=== PATIENT | female | born 1995 | race Caucasian/White ===

== ENCOUNTER → 2020-08-18 11:15 | Outpatient (CLI) | payer SELFPAY ==
[2020-08-18 12:34] LABS: hCG Titer Quant., Serum 2067 mIU/mL (1-3)
== END ==
PROVIDERS: Nurse Practitioner Women's Health; Referring Provider Obstetrics & Gynecology; Visit Provider Obstetrics & Gynecology
DX: N91.2 Amenorrhea, unspecified (principal)
CPT/HCPCS: 36415; 84702

== ENCOUNTER → 2020-08-20 13:55 | Outpatient (CLI) | payer SELFPAY ==
[2020-08-20 15:05] LABS: hCG Titer Quant., Serum 4137 mIU/mL (1-3)
== END ==
PROVIDERS: Nurse Practitioner Women's Health; Referring Provider Obstetrics & Gynecology; Visit Provider Obstetrics & Gynecology
DX: N91.2 Amenorrhea, unspecified (principal)
CPT/HCPCS: 36415; 84702

== ENCOUNTER → 2020-09-24 11:05 | Outpatient (CLI) | payer SELFPAY ==
[2020-09-24 09:47] VITALS: BMI 25.0
[2020-09-24 11:44] LABS: Absolute Lymphocyte Count 1.78 X10^3/uL (0.83-4.51); Absolute Neutrophil Count 7.7 X10^3/uL (2.0-7.7); Basophil# 0.04 X10^3/uL; Basophil% 0.4 % (0-1); Eosinophil# 0.04 X10^3/uL; Eosinophils% 0.4 % (0-5); Hematocrit 36.3 % (37-47); Hemoglobin 12.6 g/dL (12.0-15.0); Lymphocyte # 1.78 X10^3/ul (0.83-4.51); Lymphocyte % 17.6 % (19-41); Mean Corp Hgb Conc 34.7 g/dL (32-36); Mean Corpuscular Hgb 30.4 pg (27.0-32.0); Mean Corpuscular Volume 87.7 fL (81-99); Mean Platelet Vol. 9.8 fl (6.2-12.0); Monocyte# 0.52 X10^3/uL; Monocyte% 5.1 % (0-10); NRBC Flagged by Analyzer 0 % (0-5); Neutrophil # 7.69 X10^3/uL (2.7-7.7); Platelet Count 231 K/mm3 (150-450); RBC Distribution Width CV 11.8 % (11.6-14.6); RBC Distribution Width SD 37.9 fl (35.1-43.9); Red Blood Count 4.14 M/mm3 (4.2-5.4); White Blood Count 10.1 K/mm3 (4.4-11.0)
[2020-09-24 12:20] LABS: NATERA MAILED SPECIMEN
[2020-09-24 12:46] LABS: HIV - WCH Non-Reactive (Nonreactive); Hepatitis B Surface Antigen Non-Reactive (Nonreactive); Hepatitis C Antibody Non-Reactive (Nonreactive); Rubella IgG Reactive (Nonreactive); Syphilis Antibodies Non-reactive
[2020-09-24 13:59] LABS: Amphetamine Urine VISTA NEGATIVE (<1000 ng/mL); Barbiturate Urine VISTA NEGATIVE (< 200 ng/mL); Benzodiazepine Urine VISTA NEGATIVE (< 200 ng/mL); Cocaine Urine VISTA NEGATIVE (< 300 ng/mL); Ecstacy Urine VISTA NEGATIVE (< 500 ng/mL); Methadone Urine VISTA NEGATIVE (< 300 ng/mL); PCP Urine VISTA NEGATIVE (< 25 ng/mL); THC Urine VISTA NEGATIVE (< 50 ng/mL); Vista UDS pH Range 6
[2020-09-30 10:44] LABS: Chlamydia By Nucleic Acid AMP Positive (Negative); Gonococcus By Nucleic Acid AMP Negative (Negative)
[2020-09-30 10:46] LABS: HPV Reflexed? NOT INDICATED
== END ==
PROVIDERS: Referring Provider Obstetrics & Gynecology; Visit Provider Obstetrics & Gynecology
DX: Z34.81 Encounter for supervision of other normal pregnancy, first trimester (principal); Z12.4 Encounter for screening for malignant neoplasm of cervix
CPT/HCPCS: 36415; 80307; 85025; 86703; 86762; 86780; 86803; 86850; 86900; 86901; 87086; 87340; 87491; 87591; 88175; G0145

== ENCOUNTER → 2020-10-21 | Outpatient (CLI) | payer SELFPAY ==
[2020-10-21 18:25] LABS: Chlamydia Trachomatis by PCR Negative (Negative); Neisserai gonorrhoeae by PCR Negative (Negative); Probe Check PASS; Sample Adequacy Control PASS; Specimen Processing Control PASS
== END | disposition home or self-care (01) ==
LOC: LABSPEC 15:17
PROVIDERS: Visit Provider Nurse Practitioner Women's Health
DX: O98.819 Other maternal infectious and parasitic diseases complicating pregnancy, unspecified trimester (principal); A74.9 Chlamydial infection, unspecified; Z3A.00 Weeks of gestation of pregnancy not specified
CPT/HCPCS: 87491; 87591

== ENCOUNTER 2020-11-23 17:20 | Emergency (ER) | payer SELFPAY ==
[2020-11-23 17:21] VITALS: BP 122/75; PULSE 98; RESP 18; TEMP 36.7; O2SAT 100; BMI 26.4
--- NOTE | 2020-11-23 18:26 | ED.VIS.DYS ---
HPI History of Present Illness Chief Complaint: Shortness of Breath Narrative Narrative: Patient is a 25-year-old female who is 19 weeks . She states she has had mild congestion and drainage in her throat and has felt short of breath. She denies any fevers or chills or any known sick exposures. She denies any chest pain. She also reports no vaginal bleeding or discharge. She states she was just concerned with her symptoms since she is and therefore presented for evaluation [facility] Medical History Rh negative status during Home Medications prenat.vits,sushil,thr-rtoy-yecgm 1 tab PO DAILY 09/07/20 [History Last Taken Unknown] Allergy/AdvReac Type Severity Reaction Status Date / Time No Known Allergies Allergy Verified 11/23/20 17:21 Family History Mother History of DVT (deep vein thrombosis) Social History adopted: No household members: spouse current occupational status: employed current occupation: [employer] pets and animals: No Smoking Status: Never smoker alcohol intake: never substance use type: does not use ROS ROS ED Constitutional Constitutional ED: Denies chills or fever(s) ENT ENT ED: Reports nasal congestion and sore throat Cardiovascular Cardiovascular: Denies chest pain Respiratory/Chest Respiratory/Chest: Reports cough and dyspnea Gastrointestinal Gastrointestinal: Denies abdominal pain, diarrhea, nausea or vomiting Genitourinary Genitourinary ED: Denies dysuria Musculoskeletal Musculoskeletal: Denies myalgias Integumentary Denies rash Neurologic Neurologic: Denies headache(s) Hematologic/Lymphatic Hematologic/Lymphatic: Denies easy bleeding or easy bruising EXAM Physical Exam Const Vital Signs: 11/23/20 17:21 11/23/20 18:17 Temperature 98.1 F Temperature Source Temporal Pulse Rate 98 Respiratory Rate 18 Respiratory Effort Normal Non-Labored Respiratory Depth Normal Respiratory Pattern Normal Blood Pressure 122/75 H Blood Pressure Mean 90 Pulse Ox 100 Oxygen Delivery Method Room Air Positive well nourished and well developed General Appearance ED: well developed HEENT Reports moist mucous membranes HEENT Narrative: Nasal mucosa is hyperemic and boggy and there is cobblestoning the posterior pharynx but no airway edema or compromise. No tongue or lip swelling Eyes PERRL and EOMs intact bilaterally Neck supple Resp normal respiratory effort and clear to auscultation bilaterally Effort and Inspection: able to speak in complete sentences and symmetric chest movement Cardio regular rate and regular rhythm GI non-tender and non-distended Auscultation: normoactive bowel sounds Palpation: soft Extremity normal to inspection, full ROM, normal capillary refill and no clubbing, cyanosis or edema Extremity Narrative: No asymmetric edema no pitting edema negative Homans' sign bilaterally Neuro oriented x3, CN's II-XII intact bilaterally, moves all extremities and no focal motor deficits Sensorium / Orientation: alert Psych mental status grossly normal Skin no rashes or lesions noted MDM MDM MDM Narrative Medical decision making narrative: Patient presented ER satting 100% on room air with no signs of respiratory distress. Lungs are clear and she also has no asymmetric leg swelling or pleuritic chest pain to suggest pulmonary embolism as the cause of her symptoms. I do feel she most likely has a viral syndrome at this time. We discussed the possible Covid swab but it is low on my list based on her constellation of symptoms. Patient states she does not want the Covid swab obtained and as she is I do not feel there is a need to perform a chest x-ray as her pulse ox is 100% on room air and she has normal breath sound. Patient states she feels comfortable returning home as my exam is nonfocal and that she most likely has a viral illness causing her mild symptoms. Discharge Plan Triage Chief Complaint: Shortness of Breath ED Provider: Mejia Noonan Dx/Rx/DC Orders Clinical Impression: Viral upper respiratory illness Prescriptions: No Action prenat.vits,sushil,fwq-[id number]-[id number] Tablet 1 tab PO DAILY RF: 0 Primary Care Provider: Care Physician,No Primary Referrals: Cj Zavala MD [STAFF PHYSICIAN] - Care Physician,No Primary [Primary Care Provider] - Disposition Disposition: Home, Self Care
[2020-11-23 18:38] VITALS: BP 124/68; PULSE 71; RESP 15; O2SAT 98
== END 2020-11-23 18:38 | disposition home or self-care (01) ==
PROVIDERS: Emergency Provider Emergency Medicine
DX: O99.512 Diseases of the respiratory system complicating pregnancy, second trimester (principal); J06.9 Acute upper respiratory infection, unspecified; O36.0120 Maternal care for anti-D [Rh] antibodies, second trimester, not applicable or unspecified; Z3A.19 19 weeks gestation of pregnancy
CPT/HCPCS: 99283; A4216

== ENCOUNTER → 2020-12-04 07:39 | Outpatient (CLI) | payer SELFPAY ==
--- NOTE | 2020-12-04 08:11 | US_ITS ---
STUDY: SECOND AND THIRD TRIMESTER OBSTETRICAL ULTRASOUND REASON FOR EXAM: Female, 25 years old anatomy LMP: 07/14/2020. TECHNIQUE: Transabdominal and Transvaginal TECHNICAL QUALITY: Adequate. PRIOR ULTRASOUND: None. FINDINGS: There is a single intrauterine fetus. The fetus is in a cephalic presentation. There is demonstrated cardiac activity with a heart rate of 138 bpm. There is a normal amniotic fluid volume. The largest amniotic fluid pocket measures 4.6 x 4.7 cm. The amniotic fluid index (SAÚL) is within normal limits. The placenta is posterior in location and is not low lying. There are Grade 0 placental changes. The cervix measures 4.4 cm in length. The bilateral adnexal regions are normal. BIOMETRY: BPD: 4.56 cm: 19 weeks, 5 days HC: 17.31 cm: 19 weeks, 6 days AC: 15.51 cm: 20 weeks, 4 days FL: 3.06 cm: 19 weeks, 3 days CI: 79% FL/BPD: 67% FL/HC: FL/AC: 20% HC/AC: 1.12 age by current US: 19 weeks, 6 days. RADHA by current US: 04/24/2021. Estimated weight: 334 grams, +/- 50 grams, 29 %. Age by LMP: 20 weeks, 3 days. RADHA by LMP: 04/20/2021. ANATOMY: Gender: Male Cranium: Normal lateral ventricles. Normal choroid plexus. Normal cerebellum. Normal cisterna magna. Normal face, nose and lips. Chest: Normal 4-chamber heart. Abdomen/Pelvis: Normal diaphragm. Normal stomach. Normal abdominal wall. Normal cord insertion. Normal 3 vessel cord. Mild fullness of the left kidney measuring 3.5 mm. Normal bladder. Spine: Normal cervical spine. Normal thoracic spine. Normal lumbar spine. Normal sacrum. Extremities: Normal bilateral upper extremities. Normal bilateral lower extremities. US/OB Anatomy Scan IMPRESSION: Single live uterine gestation with mean gestational age of 19 weeks and 6 days. Minimal fullness of the left renal pelvis. Electronically Signed: Steve Tracy MD at 10:13 EDT , Service support ,
== END ==
PROVIDERS: Referring Provider Nurse Practitioner Women's Health; Visit Provider Nurse Practitioner Women's Health
DX: Z36.89 Encounter for other specified antenatal screening (principal)
CPT/HCPCS: 76805; 76817

== ENCOUNTER → 2021-01-29 08:14 | Outpatient (CLI) | payer SELFPAY ==
[2021-01-29 09:25] LABS: Absolute Lymphocyte Count 1.49 X10^3/uL (0.83-4.51); Absolute Neutrophil Count 5.7 X10^3/uL (2.0-7.7); Basophil# 0.03 X10^3/uL; Basophil% 0.4 % (0-1); Eosinophil# 0.05 X10^3/uL; Eosinophils% 0.6 % (0-5); Hemoglobin 10.9 g/dL (12.0-15.0); Lymphocyte # 1.49 X10^3/ul (0.83-4.51); Mean Corp Hgb Conc 35.2 g/dL (32-36); Mean Corpuscular Hgb 31.1 pg (27.0-32.0); Mean Corpuscular Volume 88.6 fL (81-99); Mean Platelet Vol. 9.8 fl (6.2-12.0); Monocyte# 0.52 X10^3/uL; Monocyte% 6.6 % (0-10); NRBC Flagged by Analyzer 0 % (0-5); Neutrophil # 5.68 X10^3/uL (2.7-7.7); Neutrophil % 72.4 % (47-70); Platelet Count 243 K/mm3 (150-450); RBC Distribution Width CV 12.1 % (11.6-14.6); RBC Distribution Width SD 39.1 fl (35.1-43.9); White Blood Count 7.9 K/mm3 (4.4-11.0)
[2021-01-29 09:39] LABS: Glucose Challenge Gest 1H 50g 132 mg/dL (70-140)
== END ==
LOC: LAB 08:15
PROVIDERS: Referring Provider Obstetrics & Gynecology; Visit Provider Obstetrics & Gynecology
DX: O26.892 Other specified pregnancy related conditions, second trimester (principal); Z67.91 Unspecified blood type, Rh negative; Z3A.18 18 weeks gestation of pregnancy; Z13.1 Encounter for screening for diabetes mellitus
CPT/HCPCS: 36415; 82950; 85025; 86850; 86900; 86901

== ENCOUNTER 2021-02-15 08:58 | Outpatient (CLI) | payer SELFPAY ==
--- NOTE | 2021-02-15 09:04 | US_ITS ---
STUDY: SECOND AND THIRD TRIMESTER OBSTETRICAL ULTRASOUND - LIMITED REASON FOR EXAM: Female, 25 years old . Small for dates. LMP: 07/14/2020. PRIOR ULTRASOUND: Comparison is made with prior study dated 12/04/2020. TECHNIQUE: Transabdominal and Transvaginal TECHNICAL QUALITY: Adequate. FINDINGS: There is a single intrauterine fetus. The fetus is in a cephalic presentation. There is demonstrated cardiac activity with a heart rate of 155 bpm. There is a normal amniotic fluid volume. The largest amniotic fluid pocket measures 3.3 cm. The amniotic fluid index (SAÚL) is 8 cm. The placenta is posterior in location and is not low lying. There are Grade 1 placental changes. The cervix measures 3.5 cm in length. BIOMETRY: BPD: 7.6 cm: 30 weeks, 4 days HC: 27.9 cm: 30 weeks, 3 days AC: 25.6 cm: 29 weeks, 5 days FL: 5.6 cm: 29 weeks, 3 days Age by LMP: 30 weeks, 6 days. RADHA by LMP: 04/20/2021. age by prior US: 30 weeks, 2 days. RADHA by prior US: 04/24/2021. age by current US: 29 weeks, 5 days. RADHA by current US: 04/28/2021. Estimated weight: 1468 grams, +/- 220 grams, 13 percentile. US/OB Limited With Biometrics IMPRESSION: Single live intrauterine gestation with a mean gestational age of 30 weeks and 2 days. The measurements obtained today fall in the lower expected range. Electronically Signed: Steve Tracy MD at 14:34 EST , Service support ,
== END 2021-02-15 23:59 | disposition short-term general hospital (02) ==
PROVIDERS: Visit Provider Obstetrics & Gynecology
DX: O26.843 Uterine size-date discrepancy, third trimester (principal); Z3A.30 30 weeks gestation of pregnancy
CPT/HCPCS: 76816; 76817

== ENCOUNTER 2021-03-15 11:11 | Outpatient (CLI) | payer SELFPAY ==
--- NOTE | 2021-03-15 11:19 | US_ITS ---
STUDY: SECOND AND THIRD TRIMESTER OBSTETRICAL ULTRASOUND - LIMITED REASON FOR EXAM: Female, 25 years old growth -- borderline SAÚL low LMP: 07/14/2020. PRIOR ULTRASOUND: Comparison is made with prior examination degenerated 2021. TECHNIQUE: Transabdominal TECHNICAL QUALITY: Adequate. FINDINGS: There is a single intrauterine fetus. The fetus is in a cephalic presentation. There is demonstrated cardiac activity with a heart rate of 152 bpm. There is a normal amniotic fluid volume. The largest amniotic fluid pocket measures 5.03 cm. The amniotic fluid index (SAÚL) is 12.74 cm. The placenta is posterior in location and is not low lying. There are Grade 0 placental changes. The cervix measures 3.35 cm in length. BIOMETRY: BPD: 8.21 cm: 33 weeks, 0 days HC: 29.88 cm: 33 weeks, 0 days AC: 30.2 cm: 34 weeks, 1 days FL: 6.26 cm: 32 weeks, 2 days Age by LMP: 34 weeks, 6 days. RADHA by LMP: 04/21/2019. age by prior US: 33 weeks, 5 days. RADHA by prior US: 04/28/2021. age by current US: 32 weeks, 6 days. RADHA by current US: 05/04/2021. Estimated weight: 2228 grams, +/- 338 grams, 63 percentile. US/OB Limited With Biometrics IMPRESSION: Single live intrauterine gestation with mean gestational age of 33 weeks and 5 days. The measurements obtained today fall within the normal expected range. Electronically Signed: Steve Tracy MD at 12:53 EST ,
== END 2021-03-15 23:59 | disposition short-term general hospital (02) ==
PROVIDERS: Visit Provider Obstetrics & Gynecology
DX: O28.8 Other abnormal findings on antenatal screening of mother (principal)
CPT/HCPCS: 76816

== ENCOUNTER 2021-03-26 10:43 | Outpatient (CLI) | payer SELFPAY | END 2021-03-26 23:59 | disposition home or self-care (01) | LOC: LABSPEC 10:43 | PROVIDERS: Visit Provider Obstetrics & Gynecology | DX: Z36.85 Encounter for antenatal screening for Streptococcus B (principal) | CPT/HCPCS: 87081 ==

== ENCOUNTER 2021-04-09 14:57 | Outpatient (CLI) | payer SELFPAY ==
--- NOTE | 2021-04-09 15:01 | US_ITS ---
HISTORY: growth at 38w EXAMINATION: US OB Limited 1 Or More Fetus TECHNIQUE: Transabdominal pelvic obstetric ultrasound was performed. COMPARISON: Obstetric ultrasound from 03/15/21 FINDINGS: Single live intrauterine fetus in cephalic presentation with heart rate 152 BPM. Grade 2 posterior placenta with no placenta previa. Cervix is obscured by shadowing. Amniotic fluid index within normal limits, 13 cm. Maternal adnexa not imaged. anatomic survey not performed. Estimated gestational age of 35 weeks 5 days based on biometrics, RADHA 05/09/21. Clinical age of 38 weeks 3 days, LMP 07/14/20. Estimated weight 2723 g (6 lbs. 0 oz.), 8th percentile by LMP. Measurements: BPD 8.65 cm, 35 weeks 0 days HC 32.30 cm, 36 weeks 4 days AC 31.73 cm, 35 weeks 5 days FL 6.91 cm, 35 weeks 4 days US/OB Limited With Biometrics IMPRESSION: Single live intrauterine with no acute abnormality. EGA by today's ultrasound is 35 weeks 5 days (RADHA 05/09/21), with clinical age of 38 weeks 3 days. age by prior ultrasound is 36 weeks 3 days with RADHA of 05/04/21. at 0805 Reported and signed by: Desmond Sheikh MD Electronically Signed: Desmond Sheikh MD at 8:04 EST ,
--- NOTE | 2021-04-09 16:08 | US_ITS ---
HISTORY: well being EXAMINATION: US Biophysical Profile W/O Nonst TECHNIQUE: Transabdominal pelvic ultrasound was performed. COMPARISON: March 15, 2021 LMP: 07/14/20. Beta-hCG: Unknown. Provided EGA: 38 weeks 3 days. FINDINGS: Single viable intrauterine in cephalic position. Regular heart rate at 144 bpm. Amniotic fluid index is 11.8 cm. BIOPHYSICAL PROFILE (BPP): 07/21. -- breathin/2. -- movement: 2/2. -- tone: 2/2. --SAÚL: 2/2. US/Biophysical Prof W/O Non Stres IMPRESSION: Single viable intrauterine in cephalic position. Biophysical profile: 07/21 at 1728 Reported and signed by: Gonzalez Vázquez MD Electronically Signed: Gonzalez Vázquez MD at 17:27 EST ,
[2021-04-09 17:00] VITALS: BMI 30.7
[2021-04-09 17:07] VITALS: BP 119/82; PULSE 88
[2021-04-09 17:08] VITALS: BP 119/82; PULSE 88; TEMP 36.6
--- NOTE | 2021-04-09 17:13 | OB.TRI.PN ---
Progress Notes Progress Note: Patient presents for triage evaluation secondary to 6/8 bpp 2 off for breathing FHT: 120 Moderate variability reactive no decelerations category I tracing [place]: no regular Contractions Assessment and plan: reactive nst reassuring fht Reactive NST, reassuring maternal and status patient discharged to home to follow-up as scheduled. See problem list details for additional plan information. Charges/Coding Procedures Urinary/Genital [id number]: [id number] non-stress test Interp
== END 2021-04-09 23:59 | disposition home or self-care (01) ==
LOC: US 16:58 → WP 16:59
PROVIDERS: Referring Provider Obstetrics & Gynecology; Visit Provider Obstetrics & Gynecology
DX: Z34.03 Encounter for supervision of normal first pregnancy, third trimester (principal)
CPT/HCPCS: 59025; 59050; 76816; 76819; 99218; G0378

== ENCOUNTER 2021-04-13 18:45 | Inpatient (IN) | payer SELFPAY ==
[2020-09-24 09:47] VITALS: BMI 25.0
[2021-04-13 19:23] VITALS: BMI 30.4
[2021-04-13 19:27] VITALS: TEMP 36.9
[2021-04-13 19:29] VITALS: BP 126/78; PULSE 99; O2SAT 99
[2021-04-13] MEDS: Lactated Ringers 1,000 ML 50 ML IV (19:35)
[2021-04-13 19:52] LABS: Absolute Lymphocyte Count 1.83 X10^3/uL (0.83-4.51); Absolute Neutrophil Count 7.3 X10^3/uL (2.0-7.7); Basophil# 0.02 X10^3/uL; Basophil% 0.2 % (0-1); Eosinophil# 0.04 X10^3/uL; Eosinophils% 0.4 % (0-5); Hematocrit 31.8 % (37-47); Hemoglobin 11.1 g/dL (12.0-15.0); Lymphocyte # 1.83 X10^3/ul (0.83-4.51); Lymphocyte % 18.8 % (19-41); Mean Corp Hgb Conc 34.9 g/dL (32-36); Mean Corpuscular Hgb 30.2 pg (27.0-32.0); Mean Corpuscular Volume 86.4 fL (81-99); Mean Platelet Vol. 10.7 fl (6.2-12.0); Monocyte# 0.48 X10^3/uL; Monocyte% 4.9 % (0-10); NRBC Flagged by Analyzer 0 % (0-5); Neutrophil # 7.28 X10^3/uL (2.7-7.7); Platelet Count 228 K/mm3 (150-450); RBC Distribution Width CV 12.7 % (11.6-14.6); RBC Distribution Width SD 40.1 fl (35.1-43.9); Red Blood Count 3.68 M/mm3 (4.2-5.4); White Blood Count 9.7 K/mm3 (4.4-11.0)
[2021-04-13] MEDS: miSOPROStol 25 MCG TABLET VAGINAL (20:20)
[2021-04-13] MEDS: Acetaminophen 500 MG Tablet PO (22:32)
[2021-04-14] VITALS (63 sets, daily range): BP systolic 80–124; BP diastolic 46–80; PULSE 65–105; RESP 16–18; TEMP 36.2–36.9; O2SAT 97–100
[2021-04-14] MEDS: miSOPROStol 25 MCG TABLET VAGINAL (00:22)
--- NOTE | 2021-04-14 01:12 | HP.PCM.OB_ITS ---
HPI - General General Date of Admission: 04/13/21 HPI Narrative ADILSON MATUTE, is a 25 F who presents for IOL secondary to IUGR. she has had a with nl saúl and recent iugr diagnosis but reassuring testing, no vb lof admits good fm Maternal Data Information RADHA Calculator Estimated Delivery Date Method Current WG Current Estimate 04/20/21 LMP (Certain) 39w 1d PFSH PFSH Medical History (Updated 04/14/21 @ 01:[address] Ingrid Morris MD) Anxiety Asthma History of prior with IUGR Rh negative status during Home Medications NK 04/12/21 [History Last Taken Unknown] Allergy/AdvReac Type Severity Reaction Status Date / Time No Known Allergies Allergy Verified 04/12/21 11:13 Family History Mother History of DVT (deep vein thrombosis) Social History adopted: No household members: spouse current occupational status: employed current occupation: [employer] pets and animals: No Smoking Status: Never smoker alcohol intake: never substance use type: does not use History 1 Elective abortions Hx Para 0 Spontaneous abortions Hx # Term Pregnancies Ectopic pregnancies Hx # Pregnancies Multiple births # of living children Visit Details Expected Delivery Route/Plan Labor Preferences- CB/BF classes: discussed labor support person: Jacky labor intervention preferences: [] pain management options preferred: [] cut cord/dad catch: [] : [] PP control planned: [] discussed possible routes of delivery and associated risks: [] special requests: [] Plans Covid status: counseled regarding risk of covid in vs vaccination and declined vaccination Flu vaccine: declined Tdap vaccine: declined Rhogam: na LARC form signed: declined movement and labor precautions reviewed. Problem list reviewed and updated with the most current plan of care details and appropriate orders placed. Relevant counseling for the gestational age provided. Continue routine care and follow up unless otherwise noted in visit notes/problem list details OB Flowsheet Initial Weight: 145 lb Date -?-?-?-?-?-?-?-?-?-?-?-?- EGA Weight BP Urine Prot -?-?-?-?-?-?-?-?-?-?-?-?- Glucose FHR FuHt Pres Dilation -?-?-?-?-?-?-?-?-?-?-?-?- Effaced St Visit Note 09/24/20 -?-?-?-?-?-?-?-?-?-?-?-?- 10w 2d 146 lb (+16 oz) 110/80 -?-?-?-?-?-?-?-?-?-?-?-?- 171 -?-?-?-?-?-?-?-?-?-?-?-?- GP - CRL 35mm co nsistent with LMP 10/21/20 -?-?-?-?-?-?-?-?-?-?-?-?- 14w 1d 148 lb 2 oz (+3 lb 2 oz) 116/70 Negative -?-?-?-?-?-?-?-?-?-?-?-?- Negative 156 -?-?-?-?-?-?-?-?-?-?-?-?- MH-No VB, LOF. Nausea again in AM-B6 and unisom vs pepcid reviewed. [facility] anatomy US ordered. 11/20/20 -?-?-?-?-?-?-?-?-?-?-?-?- 18w 3d 153 lb (+8 lb) 130/88 Negative -?-?-?-?-?-?-?-?--?-?-?-?- Negative 150 -?-?-?-?-?-?-?-?-?-?-?-?- GP - no cramping or bleeding. Anatomy 12/04. Denies complaints. 12/16/20 -?-?-?-?-?-?-?-?-?-?-?-?- 22w 1d 162 lb (+17 lb) 98/66 Negative -?-?-?-?-?-?-?-?-?-?-?-?- Negative 150 22 -?-?-?-?-?-?-?-?-?-?-?-?- SM- no vb lof go od fm no regular ctx, still some nausea 01/15/21 -?-?-?-?-?-?-?-?-?-?-?-?- 26w 3d 169 lb 2 oz (+24 lb 2 oz) 128/70 Negative -?-?-?-?-?-?-?-?-?-?-?-?- Negative 155 27 -?-?-?-?-?-?-?-?-?-?-?-?- JV- no lof, vagi nal bleeding, or dec fm, no complaints today 01/29/21 -?-?-?-?-?-?--?-?-?-?-?-?- 28w 3d 167 lb 8 oz (+22 lb 8 oz) 104/70 -?-?-?-?-?-?-?-?-?-?-?-?- 145 28 -?-?-?-?-?-?-?-?-?-?-?-?- SM- no vb lof go od fm no regular ctx 02/11/21 -?-?-?-?-?-?-?-?-?-?-?-?- 30w 2d 167 lb (+22 lb) 120/80 Negative -?-?-?-?-?-?-?-?-?-?-?-?- Negative 130 28 -?-?-?-?-?-?-?-?-?-?-?-?- SM- no vb lof go od fm no reuglar ctx ordered growth 02/24/21 -?-?-?-?-?-?-?-?-?-?-?-?- 32w 1d 170 lb (+25 lb) 120/80 Negative -?-?-?-?-?-?-?-?-?-?-?-?- Negative 140 32 -?-?-?-?-?-?-?-?-?-?-?-?- SM- no vb lof go od fm no regular ctx, fu SAÚL WNL 10 cm today 03/12/21 -?-?-?-?-?-?-?-?-?-?-?-?- 34w 3d 170 lb (+25 lb) 122/86 -?-?-?-?-?-?-?-?-?-?-?-?- 140 34 Cephalic -?-?-?-?-?-?-?-?-?-?-?-?- SM- no vb lof go od fm no regular ctx 03/26/21 -?-?-?-?-?-?-?-?-?-?-?-?- 36w 3d 173 lb (+28 lb) 120/80 -?-?-?-?-?-?-?-?-?-?-?-?- 140 36 Cephalic 0 -?-?-?-?-?-?-?-?-?-?-?-?- SM- no vb lof go od fm no regular ctx 04/02/21 -?-?-?-?-?-?-?-?-?-?-?-?- 37w 3d 177 lb 2 oz (+32 lb 2 oz) 120/80 Negative -?-?-?-?-?-?-?-?-?-?-?-?- Negative 140 37 Cephalic 0 -?-?-?-?-?-?-?-?-?-?-?-?- SM- no vb SM- no vb good fm no reuglar ctx 04/09/21 -?-?-?-?-?-?-?-?-?-?-?-?- 38w 3d 171 lb (+26 lb) 108/80 -?-?-?-?-?-?-?-?-?-?-?-?- 145 36 Cephalic -?-?-?-?-?-?-?-?-?-?-?-?- SM- no vb lof go od fm no regular ctx 04/12/21 -?-?-?-?-?-?-?-?-?-?-?-?- 38w 6d 178 lb (+33 lb) 124/74 -?-?-?-?-?-?-?-?-?-?-?-?- -?-?-?-?-?-?-?-?-?-?-?-?- 04/13/21 -?-?-?-?-?-?-?-?-?-?-?-?- 39w 0d 177 lb 8 oz (+32 lb 8 oz) 126/78 120/62 -?-?-?-?-?-?-?-?-?-?-?-?- -?-?-?-?-?-?-?-?-?-?-?-?- NST FHR Rate Baby A Baseline: 120 Variability:: Moderate Accelerations:: 15 x 15 Decelerations:: None NST Reactive:: Yes FHR Category:: Category I Uterine Activity:: irregular ROS Constitutional Constitutional: Reports systems reviewed and no addt'l complaints, except as documented Eyes Eyes: Denies change in vision ENT HEENT: Reports systems reviewed and no addt'l complaints, except as documented; Denies headache(s) Cardiovascular Cardiovascular: Reports systems reviewed and no addt'l complaints, except as documented; Denies chest pain or dyspnea Respiratory/Chest Respiratory/Chest: Reports systems reviewed and no addt'l complaints, except as documented Gastrointestinal Gastrointestinal: Reports systems reviewed and no addt'l complaints, except as documented; Denies abdominal pain Genitourinary Genitourinary: Reports systems reviewed and no addt'l complaints, except as documented, contractions Details: present (irregular) and movement Details: present; Denies dysuria or genital lesions Musculoskeletal Musculoskeletal: Reports systems reviewed and no addt'l complaints, except as documented Neurologic Neurologic: Reports systems reviewed and no addt'l complaints, except as documented Endocrine Endocrinology: Reports systems reviewed and no addt'l complaints, except as documented Vital Signs Vital Signs Vital Signs: 04/13/21 19:27 04/13/21 19:29 04/14/21 00:20 Temperature 98.4 F 97.9 F Temperature Source Temporal Temporal Pulse Rate 99 74 Blood Pressure 126/78 H 120/62 BP Systolic 126 120 BP Diastolic 78 62 Pulse Ox 99 04/14/21 00:23 Temperature Temperature Source Pulse Rate 89 Blood Pressure BP Systolic BP Diastolic Pulse Ox 98 Weight Weight: 177 lb 8 oz Body Mass Index (BMI) 30.4 Physical Exam Const alert, oriented x3, no apparent distress and healthy appearing HEENT normocephalic and moist oral mucous membranes Head and Scalp: atraumatic Neck full ROM, no lymphadenopathy, supple and thyroid normal General: trachea midline Lymph Lymphatic: no lymphadenopathy noted Chest inspection of chest normal Resp normal respiratory effort Cardio regular rate GI normal to inspection, nondistended, normoactive bowel sounds, soft to palpation and non-tender Inspection: gravid external exam normal Manual OB Exam: estimated gestational size appropriate, presentation cephalic, dilated, effaced and station Extremity normal to inspection General Extremity: Negative for edema Skin no rashes or lesions noted Neuro no focal motor deficits and deep tendon reflexes 2+ bilaterally Motor Exam: strength 5/5 throughout and clonus absent Psych mental status grossly normal Labs Labs Labs: Blood Type A NEGATIVE Antibody Screen NEGATIVE Hct 31.8 % (37-47) L Hgb 11.1 g/dL (12.0-15.0) L Obstetrics US Syphilis Total Ab Non-reactive Rubella IgG Antibody Reactive (Nonreactive) Hep Bs Antigen Non-Reactive (Nonreactive) Neisseria gonorrhoeae DNA (MARY) Negative (Negative) HIV 1&2 Antibody Non-Reactive (Nonreactive) C.trachomatis DNA (PCR) Negative (Negative) Glucose 1 Hr 50 gm 132 mg/dL (70-140) Assessment & Plan (1) : QUALIFIERS: Weeks of gestation: 38 weeks Qualified Code(s): Z3A.38 - 38 weeks gestation of COMMENT: NIPT low risk dec carrier and ntd screen; NL anatomy (2) Supervision of normal first : QUALIFIERS: Trimester: second trimester Qualified Code(s): Z34.02 - Encounter for supervision of normal first , second trimester COMMENT: PRR RADHA 04/20/21Bear ARANDA (niece Yessenia has custody) Spouse:Jacky (3) Chlamydia infection affecting : QUALIFIERS: Trimester: first trimester Qualified Code(s): O98.811 - Other maternal infectious and parasitic diseases complicating , first trimester; A74.9 - Chlamydial infection, unspecified COMMENT: hannah w/ Marjan. Urine GCC 10/21: neg (4) Anemia affecting : COMMENT: iron added; repeat cbc in 4 weeks. (5) IUGR (intrauterine growth restriction) affecting care of mother: (6) Rh negative status during : QUALIFIERS: Trimester: second trimester Qualified Code(s): O26.892 - Other specified related conditions, second trimester; Z67.91 - Unspecified blood type, Rh negative COMMENT: [place] 01/29/21 (7) Encounter for induction of labor: COMMENT: cytotec then pitocin planned, FB PRN, AROM PRN, Epi PRN
[2021-04-14] MEDS: fentaNYL 100 MCG/2 ML Ampul IV (03:58)
[2021-04-14] MEDS: Lactated Ringers 500 ML 999 ML IV ×4 (03:58→10:18)
[2021-04-14] MEDS: Ondansetron 4 MG/2 ML Vial IV (04:21)
[2021-04-14] MEDS: fentaNYL-bupivacaine (epidural) 100 ML BAG EPIDURAL ×2 (06:39→11:36)
[2021-04-14] MEDS: 0.9% Normal Saline Single 100 ML IV.SOLN. INTRA-UTER (07:12)
--- NOTE | 2021-04-14 07:20 | PCM.PN.BLA ---
Progress Note BARILLAS PLACED 1-2 70 -2 s\p epi plan pit per protocol cat I tracing
[2021-04-14] MEDS: Oxytocin 30 units/NS 500 ml 30 UNITS/500 ML IV.SOLN IV (07:36)
[2021-04-14] MEDS: Lactated Ringers 1,000 ML 200 ML IV (09:27)
[2021-04-14] MEDS: Oxytocin 30 units/NS 500 ml 30 UNITS/500 ML IV.SOLN 334 UNITS IV (12:38)
--- NOTE | 2021-04-14 13:01 | OP.PCM_ITS ---
Maternal Data Information RADHA Calculator Estimated Delivery Date Method Current WG Current Estimate 04/20/21 LMP (Certain) 39w 1d Vaginal Delivery Maternal Presentation Maternal Presentation: Medically Indicated Induction Maternal Presentation: induction of labor for intrauterine growth restriction Type of Induction: Cervidil, Pitocin, Rashid Bulb and Amniotomy Operative Information Date of Procedure: 04/14/21 Pre-Operative Diagnosis: @ 39 weeks gestation with intrauterine growth restriction Post-Operative Diagnosis: @ 39 weeks gestation with intrauterine growth restriction Type of Anesthesia: Epidural Drain: Rashid to straight drain Estimated Blood Loss: 100cc Findings Description of Procedure: Patient began pushing and delivered the head in the JOSEPH presentation. The head was delivered atraumatically. The anterior and posterior shoulders delivered without complication followed by the rest of the and the infant was placed on the maternal abdomen. Delayed cord clamping was employed for approximately 60 seconds. Cord was clamped and cut and gentle traction was applied to the cord and the placenta delivered spontaneously immediately following it was noted to be intact with three-vessel cord. The perineum and vagina were inspected and noted to have a 1st degree perineal laceration. This was repaired using a 2-0 vicryl. EBL was 100 cc. Patient and infant tolerated delivery well. Presentation: Vertex Amniotic Membrane Rupture Type: Spontaneous Amniotic Fluid Description: Clear Placental Delivery Description: Spontaneous Placenta Disposition: [facility] Cord Vessel Description: 3 Vessels Cord Entanglement: None Infant A Gender: Male (1 minute): 8 (5 minute): 9 Delayed Cord Clamping: Yes Post Vaginal Delivery Medications Given After Delivery: IV Pitocin Episiotomy Description: None Laceration: 1st degree Complication Complications: None Multi Select Codes Urinary/Genital Urinary/Genital CPT Codes: 95500 Vaginal Delivery [facility]
--- NOTE | 2021-04-14 13:07 | PCM.DC ---
Discharge Instructions Diet Discharge Diet: No restrictions Activity Discharge Activity: Return to Normal Activity, May Not Drive (while taking narcotic pain medications.) and May Shower May resume sexual activity in: 4-6 weeks Dressing / Incision Call your doctor if your incision/area has: Continuous Slow Oozing, Sudden Increased Bleeding, Increased Pain/ Swelling, Increased Redness and Foul Smelling Discharge Follow Up Care Please Follow Up With: Peggy Bautista DO When: Call [phone] to make an appointment with your doctor in 6 weeks. If you had elevated blood pressure or 4th degree laceration, you will need to be seen in 2 weeks. Test Results: Test results from this visit will be discussed in further detail at your follow-up appointment, if applicable. Discharge Plan Admission Admit Date/Time: 04/13/21 18:45 Primary Reason for Your Visit: vaginal delivery Attending Provider: Peggy Bautista Primary Care Provider: Care Physician,No Primary Discharge Orders/Prescriptions Prescriptions: New ibuprofen 800 mg tablet 800 mg PO Q8H PRN (Reason: pain) 7 Days Qty: 30 RF: 0 Continued ferrous sulfate [iron] 325 mg (65 mg iron) Tablet 325 mg PO DAILY RF: 0 [id number] 1 mg Tablet 1 tab PO DAILY RF: 0 Referrals / Follow Up: Care Physician,No Primary [Primary Care Provider] - Disposition Disposition (needs filled in before D/C Order can be placed): Home, Self Care
[2021-04-14] MEDS: Ibuprofen 600 MG Tablet PO ×2 (14:57→21:22)
[2021-04-14] MEDS: Acetaminophen 500 MG Tablet 1000 MG PO (17:39)
[2021-04-15] VITALS (9 sets, daily range): BP systolic 102–113; BP diastolic 56–72; PULSE 81–95; RESP 14–16; TEMP 36.4–36.7; O2SAT 96–98
[2021-04-15] MEDS: Ibuprofen 600 MG Tablet PO (07:47)
--- NOTE | 2021-04-15 07:58 | PCM.PN.OB ---
Subjective Subjective Patient doing well without complaints. Tolerating PO. Ambulating and voiding without difficulty. Feeding well. Denies chest pain, shortness of breath, calf pain/swelling, fevers, chills, lightheadedness. Objective Data Objective Data Vital Signs: Vital Signs Temp Pulse Resp BP Pulse Ox 98.1 F 82 14 106/56 L 96 04/15/21 05:40 04/15/21 07:54 04/15/21 05:40 04/15/21 07:54 04/15/21 07:54 Oxygen Delivery Method Room Air Weight: 177 lb 8 oz Body Mass Index (BMI) 30.4 Intake & Output: Intake and Output for Last 24 Hours 04/13/21 04/14/21 04/15/21 23:59 23:59 23:59 Intake Total 12.5 / 12.5 3452.43 / 3452.43 Output Total 3200 / 3200 Balance 12.5 / 12.5 252.43 / 252.43 Lab / Micro Data Result Diagrams: 04/13/21 19:25 Labs: Laboratory Results - last 24 hr 04/14/21 16:35: Screen NEGATIVE, Baby's Blood Type A POSITIVE, Baby's RACHEL NEGATIVE Micro: Microbiology 04/13/21 19:25 Nasal Secretion SARS-CoV-2 Antigen (Rapid) - Final ROS Constitutional Constitutional: Denies chills, fatigue, fever(s), poor appetite or weakness Eyes Eyes: Denies blurry vision, change in vision, seeing flashes or spots in vision ENT HEENT: Denies dizziness, headache(s), loss taste/smell or sore throat Cardiovascular Cardiovascular: Denies chest pain, dizziness, dyspnea, irregular heart rhythm, palpitations or rapid heart rate Respiratory/Chest Respiratory/Chest: Denies chest tightness, cough, dyspnea or breast pain Gastrointestinal Gastrointestinal: Denies abdominal pain, constipation or vomiting Genitourinary Genitourinary: Denies dysuria or flank pain Musculoskeletal Musculoskeletal: Denies difficulty walking, joint pain, limited range of motion or numbness Neurologic Neurologic: Denies abnormal movements, abnormal speech, dizziness, numbness, seizure-like activity or syncope Psychiatric Psychiatric: Denies anxiety, behavioral changes, change in appetite, confusion, depression or suicidal thoughts Physical Exam Const alert, oriented x3 and no apparent distress General Appearance: cooperative and comfortable Resp normal respiratory effort Cardio regular rate GI normal to inspection, nondistended, normoactive bowel sounds GI Narrative: uterus is firm below umbilicus Palpation: soft Bimanual Exam - Adnexa, Other: Negative for cul-de-sac fullness Back/Spine no CVA tenderness and thoraco-lumbar ROM normal Extremity normal to inspection, no clubbing, cyanosis or edema, no calf tenderness and no pedal edema Psych mental status grossly normal, thought process normal, cooperative, affect normal, speech normal, activity/motor behavior normal, denies homicidal ideation and denies suicidal ideation Assessment & Plan (1) Chlamydia infection affecting : QUALIFIERS: Trimester: first trimester Qualified Code(s): O98.811 - Other maternal infectious and parasitic diseases complicating , first trimester; A74.9 - Chlamydial infection, unspecified COMMENT: hannah w/ Marjan. Urine GCC 10/21: neg (2) Anemia affecting : COMMENT: iron added; repeat cbc in 4 weeks. (3) Rh negative status during : QUALIFIERS: Trimester: second trimester Qualified Code(s): O26.892 - Other specified related conditions, second trimester; Z67.91 - Unspecified blood type, Rh negative COMMENT: rhogam 01/29/21 PLAN: s/p PPD # 1 1. routine post delivery care 2. breast feeding- support given 3. rh positive 4. rubella immune 5. plan dc to home later tonight.
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
[2021-04-15] MEDS: Ferrous Sulfate 325 MG Tablet PO (14:15)
[2021-04-15] MEDS: Prenatal Vits Tablet 1 TABLET PO (14:15)
== END 2021-04-15 17:20 | disposition home or self-care (01) | DRG 807 ==
PROVIDERS: Obstetrics & Gynecology; Admitting Provider Obstetrics & Gynecology; Referring Provider Obstetrics & Gynecology; Visit Provider Obstetrics & Gynecology
DX: O36.5930 Maternal care for other known or suspected poor fetal growth, third trimester, not applicable or unspecified (principal); Z37.0 Single live birth; O26.893 Other specified pregnancy related conditions, third trimester; O70.0 First degree perineal laceration during delivery; O99.02 Anemia complicating childbirth; Z3A.39 39 weeks gestation of pregnancy; Z67.11 Type A blood, Rh negative
CPT/HCPCS: 59025; 59050; 85025; 85461; 86850; 86900; 86901; 87426; 90384; 99218; J7120; G0378; J2405; J2790

== ENCOUNTER 2022-09-01 19:13 | Emergency (ER) | payer OTHER, SELFPAY ==
[2022-09-01 19:14] VITALS: BP 128/85; PULSE 85; RESP 18; TEMP 36.4; O2SAT 100; BMI 25.4
--- NOTE | 2022-09-01 19:29 | US_ITS ---
EXAM: US , TRANSVAGINAL CLINICAL INDICATION: ectopic -- r/out ectopic LLQ CRAMPS TECHNIQUE: Real-time transvaginal obstetrical ultrasound of the maternal pelvis and a first trimester with image documentation. Transvaginal imaging was used for better evaluation of the fetus and adnexa. COMPARISON: No relevant prior studies available. FINDINGS: GESTATION: See below. PLACENTA/AMNIOTIC FLUID: Cannot be adequately evaluated due to the early gestational age. UTERUS/CERVIX: The uterus measures 8.3 x 4.5 x 6.3 cm. No myometrial mass. OVARIES: The right ovary measures 7.2 x 5.1 x 6.1 cm. There is a 5.4 or 5.1 x 4.2 cm anechoic structure with minimal septations may represent a complex cyst. The left ovary measures 3.0 x 1.9 x 1.7 cm. Within the adnexa there is a gestational sac with mean sac diameter 4 mm age 5 weeks 1 day. There is no evidence of a yolk sac or . FREE FLUID: No free fluid. OTHER FINDINGS: There is present in the cul-de-sac. US/Pelvic w/ Transvaginal IMPRESSION: 1. Intrauterine gestational sac age 5 weeks 1 day. There is no evidence of a pole or yolk sac. 2. Large cystic structure in the right ovary which appears to have septations or debris may represent a complex cyst. Electronically Signed: Nolan Buchanan MD at 20:49 EDT ,
--- NOTE | 2022-09-01 19:43 | EX.ED.DYSGE1 ---
HPI History of Present Illness Chief Complaint: Abd Pain Narrative Narrative: Patient presents with left pelvic pain for 2 days. She is about 5 weeks . She has no vaginal discharge or vaginal bleeding. She has no back pain or flank pain. She is denying any urinary symptoms. She is with an otherwise healthy first . [facility] Medical History Anxiety Asthma History of prior with IUGR Rh negative status during Home Medications NK 06/03/21 [History Last Taken Unknown] Allergy/AdvReac Type Severity Reaction Status Date / Time No Known Allergies Allergy Verified 09/01/22 19:22 Family History Mother History of DVT (deep vein thrombosis) Social History (Updated 06/03/21 @ 11:08 by Estelita Peraza) adopted: No household members: spouse number of children: 1 current occupational status: employed current occupation: [employer] pets and animals: No Smoking Status: Never smoker alcohol intake: never substance use type: does not use ROS ROS ED ROS Narrative Past medical history: Reviewed Medications: Reviewed Social history: Noncontributory Review of systems: All systems negative except as indicated General: No fever Cardiovascular: No chest pain Respiratory: No shortness of breath or cough Gastrointestinal: Abdominal pain as in HPI Genitourinary: No dysuria, no hematuria no vaginal bleeding Musculoskeletal: Denies myalgias no difficulty with ambulation Skin: No rash EXAM Physical Exam Narrative Exam Narrative: Physical exam General: Well nourished, Well developed, No Acute Distress Head: Normocephalic, Atraumatic Eyes: Conjunctiva not pale ENT: Moist mucous membranes Neck: Supple, Nontender, No lymphadenopathy Cardiovascular: Regular rate, Regular rhythm Respiratory: No distress, CTA bilaterally Abdomen: Soft, mostly left pelvic pain. No guarding or rebound. No upper abdominal pain no pain on the right side or at McBurney's. Relatively benign abdominal exam Pelvic: Deferred Back: Nontender, Normal Inspection. Negative for: CVA tenderness Extremities: Nontender, No edema Skin: Normal color, No rash Const Vital Signs: 09/01/22 19:14 Temperature 97.6 F L Temperature Source Temporal Pulse Rate 85 Respiratory Rate 18 Blood Pressure 128/85 H Blood Pressure Mean 99 Pulse Ox 100 Oxygen Delivery Method Room Air MDM MDM MDM Narrative Medical decision making narrative: Patient is found to have a live intrauterine . My initial worries was for ectopic but this is unfounded. Patient does not have a UTI. There is no signs or symptoms of any kind of infection. I talked to patient and who also gave me history and they are okay with discharge. She was sent by [facility] for ectopic rule out and this was accomplished. There is no vaginal bleeding therefore an ABO Rh was not ordered. Patient does have a right-sided ovarian cyst however she has no right-sided abdominal pain or pelvic pain Lab Data Labs: Laboratory Results - last 24 hr 09/01/22 09/01/22 19:39 19:55 WBC 7.2 RBC 4.28 Hgb 12.4 Hct 38.5 MCV 90.0 MCH 29.0 MCHC 32.2 RDW Std Deviation 41.3 RDW Coeff of [place] 12.5 Plt Count 237 MPV 9.8 Immature Gran % (Auto) 0.100 Neut % (Auto) 61.1 Lymph % (Auto) 32.0 [place] % (Auto) 5.4 Eos % (Auto) 0.7 Baso % (Auto) 0.7 Absolute Neuts (auto) 4.4 Absolute Lymphs (auto) 2.31 Nucleated RBC % 0 HCG, Quant 1815 H Urine Color Yellow Urine Clarity Sl. Cloudy Urine pH 6.5 Ur Specific [place]agland 1.010 Urine Protein Negative Urine Glucose (UA) Normal Urine Ketones Negative Urine Occult Blood Negative Urine Nitrite Negative Urine Bilirubin Negative Urine Urobilinogen Normal Ur Leukocyte Esterase Negative Urine RBC 0 SEEN Urine WBC 0 SEEN Ur Squamous Epith Cells 0 SEEN Urine Bacteria 0 SEEN Urine Mucus 0 SEEN Radiography Diagnostic Testing: Clinical Impression(s) from Imaging Studies Pelvic/Transvag US 09/01/22 19:29 IMPRESSION: 1. Intrauterine gestational sac age 5 weeks 1 day. There is no evidence of a pole or yolk sac. 2. Large cystic structure in the right ovary which appears to have septations or debris may represent a complex cyst. Electronically Signed: Nolan Buchanan MD at 20:49 EDT , Discharge Plan Triage Chief Complaint: Abd Pain ED Provider: Cj Burleson Dx/Rx/DC Orders Clinical Impression: Threatened miscarriage, Pelvic pain Instructions: 1st Trimester Prescriptions: No Action NK Primary Care Provider: Care Physician,No Primary Referrals: Care Physician,No Primary [Primary Care Provider] - 3-5 Days Disposition Disposition: Home, Self Care
[2022-09-01 19:56] LABS: Bacteria 0 SEEN /hpf (None Seen); Mucous, Urine 0 SEEN /hpf (<or=2+); Red Blood Cells-Urine 0 SEEN /hpf (0-5); Squamous Epithelial Cells - UA 0 SEEN /hpf (5-10); White Blood Cells 0 SEEN /hpf (0-5)
[2022-09-01 19:57] LABS: Color, Urine Yellow (Yellow); Glucose, Dipstick Normal (Normal); Ketone-Dipstick Negative (Negative); Leukocyte Esterase-Dipstick Negative /ul (Negative); Nitrite-Dipstick Negative (Negative); Occult Blood-Urine Negative /ul (Negative); Protein-Dipstick Negative (Negative); Urine Bilirubin Dipstick Negative (Negative); Urine Clarity Sl. Cloudy (Clear); Urine Urobilinogen Normal (Normal); Urine pH 6.5 (5.0 - 8.0)
[2022-09-01 20:03] LABS: Absolute Lymphocyte Count 2.31 X10^3/uL (0.83-4.51); Absolute Neutrophil Count 4.4 X10^3/uL (2.0-7.7); Basophil# 0.05 X10^3/uL; Basophil% 0.7 % (0-1); Eosinophil# 0.05 X10^3/uL; Eosinophils% 0.7 % (0-5); Hematocrit 38.5 % (37-47); Hemoglobin 12.4 g/dL (12.0-15.0); Lymphocyte # 2.31 X10^3/ul (0.83-4.51); Mean Corp Hgb Conc 32.2 g/dL (32-36); Mean Platelet Vol. 9.8 fl (6.2-12.0); Monocyte# 0.39 X10^3/uL; Monocyte% 5.4 % (0-10); NRBC Flagged by Analyzer 0 % (0-5); Neutrophil # 4.41 X10^3/uL (2.7-7.7); Neutrophil % 61.1 % (47-70); Platelet Count 237 K/mm3 (150-450); RBC Distribution Width CV 12.5 % (11.6-14.6); RBC Distribution Width SD 41.3 fl (35.1-43.9); Red Blood Count 4.28 M/mm3 (4.2-5.4); White Blood Count 7.2 K/mm3 (4.4-11.0)
[2022-09-01 20:44] LABS: hCG Titer Quant., Serum 1815 mIU/mL (1-3)
[2022-09-01 21:11] VITALS: RESP 16
== END 2022-09-01 21:12 | disposition home or self-care (01) ==
PROVIDERS: Emergency Provider Emergency Medicine; Visit Provider Emergency Medicine
DX: O20.0 Threatened abortion (principal); O26.891 Other specified pregnancy related conditions, first trimester; R10.2 Pelvic and perineal pain; Z3A.01 Less than 8 weeks gestation of pregnancy
CPT/HCPCS: 76830; 76856; 81001; 84702; 85025; 99283; A4216

== ENCOUNTER → 2022-09-29 | Outpatient (CLI) | payer OTHER, SELFPAY ==
[2022-09-29 11:55] LABS: Absolute Lymphocyte Count 2.02 X10^3/uL (0.83-4.51); Absolute Neutrophil Count 9.4 X10^3/uL (2.0-7.7); Basophil# 0.06 X10^3/uL; Basophil% 0.5 % (0-1); Eosinophil# 0.06 X10^3/uL; Eosinophils% 0.5 % (0-5); Hematocrit 40.9 % (37-47); Hemoglobin 13.3 g/dL (12.0-15.0); Lymphocyte # 2.02 X10^3/ul (0.83-4.51); Lymphocyte % 16.6 % (19-41); Mean Corp Hgb Conc 32.5 g/dL (32-36); Mean Corpuscular Hgb 29.3 pg (27.0-32.0); Mean Corpuscular Volume 90.1 fL (81-99); Mean Platelet Vol. 10.2 fl (6.2-12.0); Monocyte# 0.53 X10^3/uL; Monocyte% 4.4 % (0-10); NRBC Flagged by Analyzer 0 % (0-5); Neutrophil # 9.35 X10^3/uL (2.7-7.7); Neutrophil % 76.8 % (47-70); Platelet Count 261 K/mm3 (150-450); RBC Distribution Width CV 12.3 % (11.6-14.6); RBC Distribution Width SD 40.3 fl (35.1-43.9); Red Blood Count 4.54 M/mm3 (4.2-5.4); White Blood Count 12.2 K/mm3 (4.4-11.0)
[2022-09-29 12:35] LABS: NATERA MAILED SPECIMEN
[2022-09-29 22:08] LABS: HIV - WCH Non-Reactive (Nonreactive); Hepatitis B Surface Antigen Non-Reactive (Nonreactive); Hepatitis C Antibody Non-Reactive (Nonreactive); Rubella IgG Reactive (Nonreactive); Syphilis Antibodies Non-reactive
[2022-10-03 22:06] LABS: Chlamydia By Nucleic Acid AMP Negative (Negative); Gonococcus By Nucleic Acid AMP Negative (Negative)
== END | disposition home or self-care (01) ==
PROVIDERS: Obstetrics & Gynecology; Referring Provider Obstetrics & Gynecology; Visit Provider Obstetrics & Gynecology
DX: Z34.81 Encounter for supervision of other normal pregnancy, first trimester (principal)
CPT/HCPCS: 36415; 85025; 86703; 86762; 86780; 86803; 86850; 86900; 86901; 87086; 87340; 87491; 87591

== ENCOUNTER → 2022-10-06 | Outpatient (CLI) | payer OTHER, SELFPAY ==
[2022-10-06 11:12] LABS: NATERA MAILED SPECIMEN
== END | disposition home or self-care (01) ==
PROVIDERS: Referring Provider Obstetrics & Gynecology; Visit Provider Obstetrics & Gynecology
DX: Z34.81 Encounter for supervision of other normal pregnancy, first trimester (principal)

== ENCOUNTER → 2022-10-28 | Outpatient (CLI) | payer OTHER, SELFPAY | END | disposition home or self-care (01) | LOC: LAB 14:53 | PROVIDERS: Referring Provider Obstetrics & Gynecology; Visit Provider Obstetrics & Gynecology | DX: O26.899 Other specified pregnancy related conditions, unspecified trimester (principal); Z67.91 Unspecified blood type, Rh negative; Z3A.00 Weeks of gestation of pregnancy not specified | CPT/HCPCS: 86850; 86900; 86901 ==

== ENCOUNTER 2023-02-10 15:33 | Outpatient (CLI) | payer OTHER, SELFPAY ==
[2023-02-10 15:52] VITALS: BP 116/61; PULSE 106; TEMP 37.7
[2023-02-10 15:53] VITALS: PULSE 103; O2SAT 98
[2023-02-10 15:55] VITALS: BMI 32.1
--- NOTE | 2023-02-11 07:09 | OB.TRI.PN_ITS ---
Progress Notes Progress Note: Patient presents for triage evaluation secondary to decreased movement FHT: 140 Moderate variability reactive 10 x 10 accels GA approrpiate isolated mild variable decelerations category I tracing [place]: no regualr Contractions Assessment and plan: decreased fm patient now feeling it, Reactive NST, re assuring maternal and status patient discharged to home to follow-up as scheduled. See problem list details for additional plan information. Charges/Coding Procedures Urinary/Genital [id number]: 80114-07 non-stress test Interp
== END 2023-02-10 16:20 | disposition home or self-care (01) ==
LOC: WPOUT 15:37 → WP 15:37
PROVIDERS: Referring Provider Obstetrics & Gynecology; Visit Provider Obstetrics & Gynecology
DX: O36.8190 Decreased fetal movements, unspecified trimester, not applicable or unspecified (principal); Z3A.00 Weeks of gestation of pregnancy not specified
CPT/HCPCS: 59025; 59050; 99221; G0378

== ENCOUNTER → 2023-02-14 | Outpatient (CLI) | payer OTHER, SELFPAY ==
--- OUTSIDE RECORDS SUMMARY | 2023-02-14 10:06 | XMS RPT_ITS | CCD ---
Author Name Unknown Address [facility] [address] [place] [address] Organization [facility] Care Team Providers Care Director [employer] Name Role Phone GEORGES APONTE Referring Unavailjalen e DK TOTH Attending Unavailable ANIKA GARZA Attending Unavailable GEORGES APONTE Referring Unavailabl e Results Test Name Value Interpretation Reference Range Facil ity Encounters Encounter Date Encounter Type Care Provider Facility Start: 01-02-2023 End: 01-02-2023 ambulatory ANIKA GARZA [facility] Start: 12-15-2022 End: 12-15-2022 ambulatory GEORGES APONTE [facility] Payers Date Payer Category Payer Unknown [id number] 1997 Unknown [id number] Unknown [id number] Summary Purpose Family History No Family History Records FoundNo Family History Records Found Advance Directives No Advanced Directives Records FoundNo Advanced Directives Records Found Additional Source Comments INFORMATION SOURCE (unrecogn ized section and content) DATE CREATED AUTHOR AUTHOR'S ORGANIZ ATION 01/03/2023 [facility] FOR RECORDS PERTAINING TO PATIENTS WHO ARE OR HAVE BEEN ENROLLED IN A CHEMICAL DEPENDENCY/SUBSTANCEABUSE PROGRAM, SOME INFORMATION MAY BE OMITTED. This clinical summary was aggregated from multiple sources. Caution should be exercised in using it in the provision of clinical care. This summary normalizes information from multiple sources, and as a consequence, information in this document may materially change the coding, format and clinical context of patient data. In addition, data may be omitted in some cases. CLINICAL DECISIONS SHOULD BE BASED ON THE PRIMARY CLINICAL RECORDS. [facility] [employer] [facility]. provides no warranty or guarantee of the accuracy or completeness of information in this document.
[2023-02-14 10:10] LABS: Absolute Lymphocyte Count 1.71 X10^3/uL (0.83-4.51); Absolute Neutrophil Count 9.4 X10^3/uL (2.0-7.7); Basophil# 0.05 X10^3/uL; Basophil% 0.4 % (0-1); Eosinophils% 0.8 % (0-5); Hemoglobin 12.1 g/dL (12.0-15.0); Lymphocyte # 1.71 X10^3/ul (0.83-4.51); Lymphocyte % 14.3 % (19-41); Mean Corp Hgb Conc 32.7 g/dL (32-36); Mean Corpuscular Hgb 29.6 pg (27.0-32.0); Mean Corpuscular Volume 90.5 fL (81-99); Monocyte# 0.58 X10^3/uL; Monocyte% 4.8 % (0-10); NRBC Flagged by Analyzer 0 % (0-5); Neutrophil # 9.36 X10^3/uL (2.7-7.7); Neutrophil % 78.4 % (47-70); Platelet Count 255 K/mm3 (150-450); RBC Distribution Width CV 12.5 % (11.6-14.6); RBC Distribution Width SD 40.8 fl (35.1-43.9); Red Blood Count 4.09 M/mm3 (4.2-5.4)
[2023-02-14 10:16] LABS: Glucose Challenge Gest 1H 50g 85 mg/dL (70-140)
[2023-02-14 11:18] LABS: HIV - WCH Non-Reactive (Nonreactive); Syphilis Antibodies Non-reactive
== END | disposition home or self-care (01) ==
PROVIDERS: Referring Provider Registered Nurse; Visit Provider Registered Nurse
DX: Z34.90 Encounter for supervision of normal pregnancy, unspecified, unspecified trimester (principal)
CPT/HCPCS: 36415; 82950; 85025; 86703; 86780; 86850; 86900; 86901

== ENCOUNTER → 2023-04-10 | Outpatient (CLI) | payer OTHER, SELFPAY ==
--- OUTSIDE RECORDS SUMMARY | 2023-04-10 23:19 | XMS RPT_ITS | CCD ---
Author Name Unknown Address [address] [place] [address] Organization [facility] Care Team Providers Care Manager Social Name Role Phone GEORGES APONTE Referring ANIKA Issa Attending Unavailable GEORGES APONTE Referring ANIKA Issa Attending Unavailable DK TOTH Attending Unavailable GEORGES APONTE Referring Stefani e Zoltan Primary Care Provider Stefani miguel SELF Referring ROZINA Leggett Attending Unavailable Medications Completed/Discontinued Medications Medication Drug Class(es) Dates Sig (Normalized) Sig (Original) vit37/iron/folic acid (PRENATA ORAL) (1 source) vit37/iron/folic acid (PRENATA ORAL) Take by mouth once daily. 0 Active Problems Problem Classification Problem Date Documented Da te Episodic/Chronic Disorders of teeth and jaw (1 source) Acute gingivitis; Translations: [Acute gingivitis, plaque induced] 03-26-2023 Episodic Unclassified (1 source) No additional problems on file Results Test Name Value Interpretation Reference Range Facil ity Vital Signs Date Time Vital Sign Value Performing Clinician Faci lity 03-26-2023 12:37-0500 Body temperature 98.2 [degF] Rozina Alonso APRN.GAMING CAGE CASHIER Work Phone: [facility] 03-26-2023 12:37-0500 Body weight 86.27 kg Rozina Alonso APRN.CNP Work Phone: [facility] 03-26-2023 12:37-0500 Diastolic blood pressure 75 mm[Hg] Rozina Shubham-Eibara LEARNING COORDINATOR.GAMING CAGE CASHIER Work Phone: [facility] 03-26-2023 12:37-0500 Heart rate 91 /min Rozina Shubham-Dionybara LEARNING COORDINATOR.GAMING CAGE CASHIER Work Phone: [facility] 03-26-2023 12:37-0500 Respiratory rate 16 /min Rozina Shubham-Eibara LEARNING COORDINATOR.GAMING CAGE CASHIER Work Phone: [facility] 03-26-2023 12:37-0500 SaO2% (BldA) [Mass fraction] 97 % Rozinavinicio Jalloh-Álvaroa LEARNING COORDINATOR.GAMING CAGE CASHIER Work Phone: [facility] 03-26-2023 12:37-0500 Systolic blood pressure 112 mm[Hg] Rozina Jalloh-Álvaroa LEARNING COORDINATOR.GAMING CAGE CASHIER Work Phone: [facility] Encounters Encounter Date Encounter Type Care Provider Facility Start: 03-26-2023 End: 03-26-2023 ambulatory SELF Facility:[id number] Start: 03-26-2023 End: 03-26-2023 Patient encounter procedure Rozina Jalloh-Bhargav HERNANDEZ.GAMING CAGE CASHIER Work Phone: [facility] Plan of Treatment Date Care Activity Detail Author Start: 2057 RSV Vaccine (1 - 1-d ose 60+ series) RSV Vaccine (1 - 1-dose 60+ series) [facility] Start: 02-13-2023 Depression Assessment Depression Ass essment [facility] Start: 10-14-2022 Influenza vaccination Influenza Vacc ine (#1) [facility] Start: 2018 Screening for malign ant neoplasm of cervix Pap Testing [facility] Start: 2016 Urine microalbumin profile DTa P,Tdap,Td Vaccine (2 - Tdap) [facility] Start: 10-05-2015 Hepatitis C screening Hepatitis C Sc reening [facility] Start: 10-05-2015 HIV screening HIV Screening [facility] Start: 11-06-2011 HPV Vaccine (2 - 2-d ose series) HPV Vaccine (2 - 2-dose series) [facility] Start: 10-05-2011 Peds To Adult Transi tion Annual Assessment Peds To Adult Transition Annual Assessment [facility] Start: 2009 Peds To Adult Transi tion Initial Discussion Peds To Adult Transition Initial Discussion [facility] Start: 04-06-1998 Covid-19 Vaccine (#1) Covid-19 Vacci ne (#1) [facility] Payers Date Payer Category Payer Unknown [id number] 2023 Unknown MMO [employer] [id number] 2023-Present [phone] [address] [place] [address] Indemnity [id number] 1997 Unknown [id number] 1997 Unknown [id number] 1997 Unknown [id number] Social History Date Type Detail Facility Start: 03-26-2023 Tobacco smoking stat [email or web address]IS Never smoked tobacco [facility] Start: 03-26-2023 Tobacco use and exposure Smoke less tobacco non-user [facility] Start: 03-26-2023 Alcohol intake Ex-drinker (finding) [facility] Start: 03-26-2023 History of Social function [facility] Start: 03-26-2023 Tobacco use panel [facility] Adult Depression Scr eening Assessment 0 [facility] Start: 1997 Sex Assigned At Not on file [facility] Progress note 03-26-2023 Note Date & Type Note Facility 03-26-2023 Note HNO ID: [id number] Author: ROZINA ALONSO APRN.GAMING CAGE CASHIER Service: ? Author Type: Nurse Practitioner Type: Progress Notes Filed: 03/26/2023 13:23 Note Text: Maci Matute is a 27 year old female who presents with Mouth Pain (Ate 5 Oranges and drinking [place] Juice 24 hrs later Mouth Pain Started with Intermittent symptoms include, White and Gritting Tongue, Red Inflammed Gums, Tongue, Roof of Mouth very Itchy, Bad Taste, and Odor, Numbing sensation on tip of Tongue and inside her Lips and Sores. X 3.5 days) 27-year-old female presents today with gum pain and swelling for the last 3 days. Patient states that she ate some oranges 3 days ago and after that developed pain and swelling and redness to her gums. Patient is currently 34 weeks . States she has been using a salt water rinse with no relief. Patient states drinking fluids and has activity. History reviewed. No pertinent past medical history. There is no problem list on file for this patient. Current Outpatient Medications Medication Sig Dispense Refill vit37/iron/folic acid (PRENATA ORAL) Take by mouth once daily. No current facility-administered medications for this visit. Social History Tobacco Use Smoking status: Never Smokeless tobacco: Never Vaping Use Vaping Use: Never used Substance Use Topics Alcohol use: Not Currently Drug use: Never Alcohol Use: Not Currently Tobacco Use: Never History reviewed. No pertinent family history. Review of Systems HENT: Dental All other systems reviewed and are negative. BP 112/75 Pulse 91 Temp (Src) 98.2 (Temporal) Resp 16 Wt 190 lb 3.2 oz (86.3kg) SpO2 97% Physical Exam Vitals and nursing note reviewed. Constitutional: General: She is not in acute distress. Appearance: Normal appearance. She is normal weight. She is not ill-appearing, toxic-appearing or diaphoretic. HENT: Head: Normocephalic. Left Ear: Tympanic membrane normal. Nose: Nose normal. No congestion or rhinorrhea. Mouth/Throat: Lips: [place]. Mouth: Mucous membranes are moist. Dentition: Dental tenderness and gingival swelling present. Pharynx: Oropharynx is clear. Uvula midline. No pharyngeal swelling, oropharyngeal exudate, posterior oropharyngeal erythema or uvula swelling. Cardiovascular: Rate and Rhythm: Normal rate and regular rhythm. Pulses: Normal pulses. Heart sounds: Normal heart sounds. Pulmonary: Effort: Pulmonary effort is normal. No respiratory distress. Breath sounds: Normal breath sounds. No stridor. No wheezing, rhonchi or rales. Chest: Chest wall: No tenderness. Musculoskeletal: Cervical back: Normal range of motion. No rigidity or tenderness. Lymphadenopathy: Cervical: No cervical adenopathy. Skin: General: Skin is warm and dry. Capillary Refill: Capillary refill takes less than 2 seconds. Neurological: Mental Status: She is alert. ASSESSMENT/PLAN: 1. Acute gingival inflammation - ICD9: 523.00, ICD10: K05.00 Discussed with patient oral hygiene twice a day using antiseptic mouthwash. Follow-up with COOLING TOWER TECHNICIAN or dental. If worsening of condition shortness or breath, fever chill please go to ER for evaluation. Rozina Alonso APRN.GAMING CAGE CASHIER This note was partially generated using Leikr voice recognition system, and there may be some incorrect words, spellings, and punctuation that were not noted in checking the note before saving. [facility] History of Present illness Narrative 03-26-2023 Rozina Alonso APRN.MICHELE - 03/26/2023 1:19 PM EST Note Date & Type Note Facility 03-26-2023 History of Presen t illness Narrative Maci aMtute is a 27 year old female who presents with Mouth Pain (Ate 5 Oranges and drinking [place] Juice 24 hrs later Mouth Pain Started with Intermittent symptoms include, White and Gritting Tongue, Red Inflammed Gums, Tongue, Roof of Mouth very Itchy, Bad Taste, and Odor, Numbing sensation on tip of Tongue and inside her Lips and Sores. X 3.5 days) 27-year-old female presents today with gum pain and swelling for the last 3 days. Patient states that she ate some oranges 3 days ago and after that developed pain and swelling and redness to her gums. Patient is currently 34 weeks . States she has been using a salt water rinse with no relief. Patient states drinking fluids and has activity. History reviewed. No pertinent past medical history. There is no problem list on file for this patient. Current Outpatient Medications Medication Sig Dispense Refill vit37/iron/folic acid (PRENATA ORAL) Take by mouth once daily. No current facility-administered medications for this visit. Social History Tobacco Use Smoking status: Never Smokeless tobacco: Never Vaping Use Vaping Use: Never used Substance Use Topics Alcohol use: Not Currently Drug use: Never Alcohol Use: Not Currently Tobacco Use: Never History reviewed. No pertinent family history. Review of Systems HENT: Dental All other systems reviewed and are negative. BP 112/75 Pulse 91 Temp (Src) 98.2 (Temporal) Resp 16 Wt 190 lb 3.2 oz (86.3kg) SpO2 97% Physical Exam Vitals and nursing note reviewed. Constitutional: General: She is not in acute distress. Appearance: Normal appearance. She is normal weight. She is not ill-appearing, toxic-appearing or diaphoretic. HENT: Head: Normocephalic. Left Ear: Tympanic membrane normal. Nose: Nose normal. No congestion or rhinorrhea. Mouth/Throat: Lips: [place]. Mouth: Mucous membranes are moist. Dentition: Dental tenderness and gingival swelling present. Pharynx: Oropharynx is clear. Uvula midline. No pharyngeal swelling, oropharyngeal exudate, posterior oropharyngeal erythema or uvula swelling. Cardiovascular: Rate and Rhythm: Normal rate and regular rhythm. Pulses: Normal pulses. Heart sounds: Normal heart sounds. Pulmonary: Effort: Pulmonary effort is normal. No respiratory distress. Breath sounds: Normal breath sounds. No stridor. No wheezing, rhonchi or rales. Chest: Chest wall: No tenderness. Musculoskeletal: Cervical back: Normal range of motion. No rigidity or tenderness. Lymphadenopathy: Cervical: No cervical adenopathy. Skin: General: Skin is warm and dry. Capillary Refill: Capillary refill takes less than 2 seconds. Neurological: Mental Status: She is alert. ASSESSMENT/PLAN: 1. Acute gingival inflammation - ICD9: 523.00, ICD10: K05.00 Discussed with patient oral hygiene twice a day using antiseptic mouthwash. Follow-up with COOLING TOWER TECHNICIAN or dental. If worsening of condition shortness or breath, fever chill please go to ER for evaluation. Rozina Alonso APRN.MICHELE This note was partially generated using Leikr voice recognition system, and there may be some incorrect words, spellings, and punctuation that were not noted in checking the note before saving. documented in this encounter [facility] Instructions 03-26-2023 Patient Instructions Note Date & Type Note Facility 03-26-2023 Instructions Rozina Alonso APRN.MICHELE - 03/26/2023 1:13 PM EST Images from the original note were not included. Gingivitis during Hormonal changes that occur with significantly influence the bacterial haris, causing significant gingival inflammation and hypertrophy. Mouth - -related changes to the oral mucosa Enlargement and blunting of the interdental papillae is common and gingivitis (picture 19) may occur or worsen. Prevalence rates of 40 to 100 percent have been reported [56]. The cause of -induced gingivitis is likely multifactorial and includes hormone-related vascular and inflammatory changes [57-61]. Optimal oral hygiene can reduce gingival swelling, erythema, and bleeding tendencies; therefore, brushing twice daily, flossing daily, and rinsing with an antimicrobial/antiseptic mouthrinse once or twice a day are important. Patients with moderate to severe symptoms should consult with a dental professional. documented in this encounter [facility] Evaluation note Note Date & Type Note Facility documented in this encounter [facility] Summary Purpose Family History No Family History Records FoundNo Family History Records FoundNo Family History Records Found Advance Directives No Advanced Directives Records FoundNo Advanced Directives Records FoundNo Advanced Directives Records Found Additional Source Comments INFORMATION SOURCE (unrecogn ized section and content) DATE CREATED AUTHOR AUTHOR'S ORGANIZ ATION 03/12/2023 [facility] DATE CREATED AUTHOR AUTHOR'S ORGANIZ ATION 03/27/2023 [facility] nter Source Comments (unrecognize d section and content) In the event this informatio n is protected by the Federal Confidentiality of Alcohol and Drug Abuse Patient Records regulations: The Federal rules restrict any use of the information to criminally investigate or prosecute any alcohol or drug abuse patient.[facility] Reason for Visit (unrecogniz ed section and content) FOR RECORDS PERTAINING TO PATIENTS WHO ARE [...] BE BASED ON THE PRIMARY CLINICAL RECORDS. [facility]. provides no warranty or guarantee of the accuracy or completeness of information in this document.
== END | disposition home or self-care (01) ==
LOC: LABSPEC 14:45
PROVIDERS: Referring Provider Obstetrics & Gynecology; Visit Provider Obstetrics & Gynecology
DX: O09.90 Supervision of high risk pregnancy, unspecified, unspecified trimester (principal); Z3A.00 Weeks of gestation of pregnancy not specified
CPT/HCPCS: 87081

== ENCOUNTER 2023-05-06 07:40 | Inpatient (IN) | payer OTHER, SELFPAY ==
[2023-02-10 15:52] VITALS: RESP 16
[2023-05-06] VITALS (75 sets, daily range): BP systolic 78–185; BP diastolic 48–81; PULSE 76–130; RESP 14–20; TEMP 36.6–37.5; O2SAT 78–100; BMI 34.1
--- NOTE | 2023-05-06 07:48 | HP.PCM.OB_ITS ---
HPI - General General Date of Admission: 05/06/23 Date of Service: 05/06/23 HPI Narrative ADILSON MATUTE, is a 27 F 40.1 weeks who presents to unit for labor. Cervical change noted after 2 hours. contractions palpating moderate Maternal Data Information RADHA Calculator Estimated Delivery Date Method Current WG Current Estimate 05/05/23 LMP (Certain) 40w 1d Final RADHA: 05/06/23 Final RADHA Source: US >20 weeks Gestational age: 40.1 weeks PFSH PFSH Medical History Anxiety Asthma H/O chlamydia infection History of prior with IUGR Rh negative status during Home Medications multivitamin no.47-iron fum 27 mg-folate no.1 1 mg-dha 300 mg capsule (PNV-DHA) 1 cap PO DAILY 09/20/22 [History Last Taken 02/10/23] Allergy/AdvReac Type Severity Reaction Status Date / Time Food Allergies: Uncoded Allergy Mild Diarrhea Verified 05/06/23 05:41 Latex, Natural Rubber Allergy Mild Rash Verified 05/06/23 05:41 Family History Mother History of DVT (deep vein thrombosis) Miscarriage Aunt Miscarriage maternal Surgical History H/O wisdom tooth extraction Status post vaginal delivery Social History adopted: No household members: spouse and children number of children: 1 current occupational status: unemployed current occupation: homemaker pets and animals: No history of recent travel: Yes ([place]) out of state: Yes out of country: No sexually active: Yes Smoking Status: Never smoker alcohol intake: never substance use type: does not use well-balanced diet: daily or most days caffeine: Yes Type: coffee Number of servings: 1 eating out: 1-3 times/week during the past year weight has: decreased > 10 lbs what type of physical activity do you participate in: none janes/pentecostal: [employer] seatbelt use: always do you feel safe at home: Yes additional social history: [place] History 2 Elective abortions Hx Para 1 Spontaneous abortions Hx # Term Pregnancies 1 Ectopic pregnancies Hx # Pregnancies Multiple births # of living children 1 Past Pregnancies Del. Date Name GA/Weeks Outcome Route Bth Weight Gen Labor Lgth Anesthesia Del Benoitatn Provider FOB 04/14/21 Juan 39 live - full term 6 lbs 9oz Male [facility] Jayashree Rico Visit Details Expected Delivery Route/Plan Labor Preferences- CB/BF classes: labor support person: [] labor intervention preferences: pain management options preferred: epidural cut cord/dad catch: [] : [] PP control planned: [] discussed possible routes of delivery and associated risks: [] special requests: [] Plans Covid status: declined Flu vaccine: declined Tdap vaccine: declined Rhogam: given in first trimester and 28 weeks LARC form signed: declined movement and labor precautions reviewed. Problem list reviewed and updated with the most current plan of care details and appropriate orders placed. Relevant counseling for the gestational age provided. Continue routine care and follow up unless otherwise noted in visit notes/problem list details OB Flowsheet Initial Weight: 145 lb Date -?-?-?-?-?-?-?-?-?-?-?-?- EGA Weight BP Urine Prot -?-?-?-?-?-?-?-?-?-?-?-?- Glucose FHR FuHt Pres Dilation -?-?-?-?-?-?-?-?-?-?-?-?- Effaced St Visit Note 09/29/22 -?-?-?-?-?-?-?-?-?-?-?-?- 8w 6d 145 lb 6 oz (+6 oz) 107/70 -?-?-?-?-?-?-?-?-?-?-?-?- 185 -?-?-?-?-?-?-?-?-?-?-?-?- SM- CRl 1.85cm SM- CRl 1.85cm cons with lMP 10/28/22 -?-?-?-?--?-?-?-?-?-?-?-?- 13w 0d 153 lb 2 oz (+8 lb 2 oz) 108/68 Negative -?-?-?-?-?-?-?-?-?-?-?-?- Negative 160 -?-?-?-?-?-?-?-?-?-?-?-?- SM- had bleeding last week, will give rhogam today 11/29/22 -?-?-?-?-?-?-?-?-?-?-?-?- 17w 4d 159 lb 4 oz (+14 lb 4 oz) 102/73 Negative -?-?-?-?-?-?-?-?-?-?-?-?- Negative 150 -?-?-?-?-?-?-?-?-?-?-?-?- kw-no vb/crampin g. positive flutters. anatomy US ordered. afp declined. 12/29/22 -?-?-?-?-?-?-?-?-?-?-?-?- 21w 6d 165 lb (+20 lb) 107/76 Trace -?-?-?-?-?-?-?-?-?-?-?-?- Negative 148 -?-?-?-?-?-?--?-?-?-?-?-?- LC- no vb/crampi ng. incomplete anatomy scan, has f/u scheduled. plans on using Fresh test for glucose. 01/23/23 -?-?-?-?-?-?-?-?-?-?-?-?- 25w 3d 175 lb 2 oz (+30 lb 2 oz) 107/75 Negative -?-?-?-?-?-?-?-?-?-?-?-?- Negative 143 25 -?-?-?-?-?-?-?-?-?-?-?-?- LC- LC- no vb/ctx/lof. good fm. anatomy completed. growth planned for 32 and 36 for hx of iugr. 28 week labs ordered, plans on using fresh test. 02/14/23 -?-?-?-?-?-?-?-?-?-?-?-?- 28w 4d 181 lb 4 oz (+36 lb 4 oz) 107/74 Negative -?-?-?-?-?-?-?-?-?-?-?-?- Negative 140 28 -?-?-?-?-?-?-?-?-?-?-?-?- KW- no vb ctx. g ood fm. passed 28 week labs. Rhogam today 02/27/23 -?-?-?-?-?-?-?-?-?-?-?-?- 30w 3d 184 lb 6 oz (+39 lb 6 oz) 129/89 Negative -?-?-?-?-?-?-?-?--?-?-?-?- Negative 130 30 -?-?-?-?-?-?-?-?-?-?-?-?- JV- no lof, vagi nal bleeding, or dec fm. No complaints today 03/13/23 -?-?-?-?-?-?-?-?-?-?-?-?- 32w 3d 186 lb (+41 lb) 104/80 -?-?-?-?-?-?-?-?-?-?-?-?- 125 32 -?-?-?-?-?-?-?-?-?-?-?-?- SM- no vb lof go od fm no regualr ctx larc signed 03/30/23 -?-?-?-?-?-?-?-?-?-?-?-?- 34w 6d 190 lb (+45 lb) 112/70 -?-?-?-?-?-?-?-?-?-?-?-?- 134 34 -?-?-?-?-?-?-?-?-?-?-?-?- SM- no vb lof go od fm nor egular ctx 04/10/23 -?-?-?-?-?-?-?-?-?-?-?-?- 36w 3d 191 lb (+46 lb) 109/76 -?-?-?-?-?-?-?-?-?-?-?-?- 140 36 -?-?-?-?-?-?-?-?-?-?-?-?- SM- no vb lof go od fm n oregular ctx gbs today 04/17/23 -?-?-?-?-?-?-?-?-?-?--?-?- 37w 3d 190 lb (+45 lb) 102/63 Negative -?-?-?-?-?-?-?-?-?-?-?-?- Negative 145 37 Cephalic 1 -?-?-?-?-?-?-?-?-?-?-?-?- 50 -2 JV- no lof , vaginal bleeding, or dec fm. gbs is neg 04/24/23 -?-?-?-?-?-?-?-?-?-?-?-?- 38w 3d 192 lb (+47 lb) 103/60 Negative -?-?-?-?-?-?-?-?-?-?-?-?- Negative 145 38 Cephalic 1 -?-?-?-?-?-?-?-?-?-?-?-?- 20 -3 LC- no lof /vb/consistent ctx. good fm. no concerns.wants membranes swept next visit 05/01/23 -?-?-?-?-?-?-?-?-?-?-?-?- 39w 3d 193 lb 6 oz (+48 lb 6 oz) 109/66 Negative -?-?-?-?-?-?-?-?-?-?-?-?- Negative 135 Cephalic 1.5 -?-?-?-?-?-?-?-?-?-?-?-?- 60 -2 JV- pt wan ts to come back at 40 weeks for membrane sweep. no lof, vaginal bleeding, or dec fm. 05/05/23 -?-?-?-?-?-?-?-?-?-?-?-?- 40w 0d 193 lb 4 oz (+48 lb 4 oz) Negative -?-?-?-?-?-?-?-?-?-?-?-?- Negative 130 40 Cephalic 2 .5 -?-?-?-?-?-?-?-?-?-?-?-?- 80 -1 KW- no vb/ lof/ctx. good fm. membrane sweep today. labor precautions. ROS Constitutional Constitutional: Denies change in weight, fatigue, fever(s), headache(s), poor appetite or weakness Eyes Eyes: Denies blurry vision, change in vision, floaters, seeing flashes or spots in vision ENT HEENT: Denies dizziness, headache(s), loss taste/smell or sore throat Cardiovascular Cardiovascular: Denies chest pain, dizziness, dyspnea, irregular heart rhythm, lightheadedness, palpitations or rapid heart rate Respiratory/Chest Respiratory/Chest: Denies change in mental status, chest tightness, cough, dyspnea or breast pain Gastrointestinal Gastrointestinal: Denies anorexia, chewing difficulty, constipation, diarrhea or weight changes Genitourinary Genitourinary: Denies difficulty urinating, dysuria, flank pain, genital pain, urinary frequency or urinary urgency Musculoskeletal Musculoskeletal: Denies back pain, difficulty walking, extremity pain, joint pain, muscle cramps or muscle weakness Integumentary Integumentary: Denies lesions or unusual bruising Neurologic Neurologic: Denies abnormal movements, abnormal speech, dizziness, numbness, seizure-like activity, syncope or weakness Psychiatric Psychiatric: Denies behavioral changes, change in appetite, confusion, depression, homicidal ideation, suicidal ideation or suicidal thoughts Endocrine Endocrinology: Denies excessive sweating, polydipsia or polyuria Hematologic/Lymphatic Hematologic/Lymphatic: Denies anemia Allergic/Immunologic Allergic/Immunologic: Denies itchy eyes, lip swelling, throat swelling, tongue swelling or wheezing Vital Signs Vital Signs Vital Signs: 05/06/23 04:58 05/06/23 04:58 05/06/23 04:58 Temperature Temperature Source Pulse Rate 103 H 100 Respiratory Rate Blood Pressure 136/81 H BP Systolic 136 BP Diastolic 81 Pulse Ox 05/06/23 04:58 05/06/23 04:58 05/06/23 04:58 Temperature Temperature Source Temporal Pulse Rate Respiratory Rate 16 Blood Pressure BP Systolic BP Diastolic Pulse Ox 98 05/06/23 04:58 05/06/23 05:16 05/06/23 05:16 Temperature 97.8 F Temperature Source Pulse Rate 90 Respiratory Rate Blood Pressure 113/69 BP Systolic 113 BP Diastolic 69 Pulse Ox 05/06/23 06:45 05/06/23 06:45 05/06/23 06:50 Temperature Temperature Source Pulse Rate 102 H 96 Respiratory Rate Blood Pressure BP Systolic BP Diastolic Pulse Ox 98 05/06/23 06:50 05/06/23 06:55 05/06/23 06:55 Temperature Temperature Source Pulse Rate 97 Respiratory Rate Blood Pressure BP Systolic BP Diastolic Pulse Ox 99 98 05/06/23 07:00 05/06/23 07:00 05/06/23 07:05 Temperature Temperature Source Pulse Rate 105 H 102 H Respiratory Rate Blood Pressure BP Systolic BP Diastolic Pulse Ox 98 05/06/23 07:05 05/06/23 07:10 05/06/23 07:10 Temperature Temperature Source Pulse Rate 97 Respiratory Rate Blood Pressure BP Systolic BP Diastolic Pulse Ox 98 99 05/06/23 07:13 05/06/23 07:13 05/06/23 07:13 Temperature Temperature Source Temporal Pulse Rate Respiratory Rate 16 Blood Pressure BP Systolic BP Diastolic Pulse Ox 78 05/06/23 07:13 05/06/23 07:15 05/06/23 07:15 Temperature 98.2 F Temperature Source Pulse Rate 121 H Respiratory Rate Blood Pressure 78/48 L BP Systolic 78 BP Diastolic 48 Pulse Ox 05/06/23 07:16 05/06/23 07:16 Temperature Temperature Source Pulse Rate 90 Respiratory Rate Blood Pressure 116/64 BP Systolic 116 BP Diastolic 64 Pulse Ox Weight Weight: 192 lb 12.8 oz Body Mass Index (BMI) 34.1 Physical Exam Const alert, oriented x3 and no apparent distress General Appearance: cooperative Orientation / Consciousness: awake HEENT normocephalic Neck full ROM Lymph Lymphatic: no lymphadenopathy noted Chest inspection of chest normal Resp normal respiratory effort and normal air movement Effort and Inspection: able to speak in complete sentences and symmetric chest movement GI soft to palpation and non-tender Inspection: gravid Palpation: soft; Negative for tender external exam normal Back/Spine normal to inspection Extremity normal to inspection and full ROM Skin no rashes or lesions noted Psych mental status grossly normal Appearance: grossly normal Speech: normal speech Labs Labs Labs: Blood Type A NEGATIVE Antibody Screen NEGATIVE Hct 37.0 % (37-47) Hgb 12.1 g/dL (12.0-15.0) Obstetrics Ultrasound Syphilis Total Ab Non-reactive Rubella IgG Antibody Reactive (Nonreactive) Hep Bs Antigen Non-Reactive (Nonreactive) Hepatitis C Antibody Non-Reactive (Nonreactive) Chlamydia DNA (MARY) Negative (Negative) N.gonorrhoeae DNA (MARY) Negative (Negative) HIV 1&2 Antibody Non-Reactive (Nonreactive) Glucose 1 Hr 50 gm 85 mg/dL (70-140) Assessment & Plan (1) History of prior with IUGR : COMMENT: Current 2022 growth at 32 and 36 weeks. 32 wk:47%; 36w:25% (2) History of eating disorder: COMMENT: in remission will step on scale backwards. only to discuss weight gain if clinically relevant. encouraged well balanced meals (3) Rh negative status during : QUALIFIERS: Trimester: second trimester Qualified Code(s): O26.892 - Other specified related conditions, second trimester; Z67.91 - Unspecified blood type, Rh negative COMMENT: Rhogam given at 28 weeks and PRN (4) Supervision of high-risk : COMMENT: GBS neg, PRR , RADHA 05/04/22, girl, Caleb PC Juan Jacky (5) : QUALIFIERS: Weeks of gestation: 40 weeks Qualified Code(s): Z3A.40 - 40 weeks gestation of COMMENT: NIPT low risk, declined carrier testing. ntd declined. nl anatomy (6) Active labor: PLAN: Patient presents IAL, plan expectant management for , pitocin/AROM PRN if needed. Pain management: plans epidural. GBS negative. Management of any complications: none I have reviewed the [facility] and made any clinically relevant updates. Charges/Coding Multi Select Codes Urinary/Genital Urinary/Genital CPT Codes: No Charge
[2023-05-06] MEDS: Lactated Ringers 1,000 ML 999 ML IV (09:20)
[2023-05-06 09:42] LABS: Absolute Lymphocyte Count 1.79 X10^3/uL (0.83-4.51); Absolute Neutrophil Count 12.3 X10^3/uL (2.0-7.7); Basophil# 0.05 X10^3/uL; Basophil% 0.3 % (0-1); Eosinophil# 0.04 X10^3/uL; Eosinophils% 0.3 % (0-5); Hematocrit 35.6 % (37-47); Hemoglobin 11.8 g/dL (12.0-15.0); Lymphocyte # 1.79 X10^3/ul (0.83-4.51); Lymphocyte % 11.9 % (19-41); Mean Corp Hgb Conc 33.1 g/dL (32-36); Mean Corpuscular Hgb 28.6 pg (27.0-32.0); Mean Corpuscular Volume 86.4 fL (81-99); Mean Platelet Vol. 9.8 fl (6.2-12.0); Monocyte# 0.72 X10^3/uL; Monocyte% 4.8 % (0-10); NRBC Flagged by Analyzer 0 % (0-5); Neutrophil # 12.28 X10^3/uL (2.7-7.7); Neutrophil % 81.6 % (47-70); Platelet Count 248 K/mm3 (150-450); RBC Distribution Width CV 13.5 % (11.6-14.6); RBC Distribution Width SD 42.1 fl (35.1-43.9); Red Blood Count 4.12 M/mm3 (4.2-5.4); White Blood Count 15.1 K/mm3 (4.4-11.0)
[2023-05-06 10:29] LABS: Syphilis Antibodies Non-reactive
[2023-05-06] MEDS: Lactated Ringers 1,000 ML 200 ML IV ×3 (10:39→15:52)
[2023-05-06] MEDS: fentaNYL-bupivacaine (epidural) 100 ML BAG EPIDURAL ×2 (11:16→15:56)
[2023-05-06] MEDS: Ondansetron 4 MG/2 ML Vial IV ×2 (11:16→15:50)
[2023-05-06] MEDS: Oxytocin 15 Units/NS 250ml 15 UNITS/250 ML IV.SOLN 2 UNITS IV (12:01)
--- NOTE | 2023-05-06 12:29 | PCM.PN.BLA ---
Progress Note comfortable with epidural current tracing: FHT: 130 Moderate variability reactive no decelerations category I tracing [place]: 2-3 Contractions Membranes: AROM 1230 for clear fluid SVE:6/-2 A/P: Continue with position changes Titrate pitocin per protocol Epidural per anesthesia Anticipate Dr Morris aware of above assessment and agrees with plan of care Assessment & Plan Assessment/Plan (1) Active labor: (2) History of prior with IUGR : (3) History of eating disorder: (4) Rh negative status during : QUALIFIERS: Trimester: second trimester Qualified Code(s): O26.892 - Other specified related conditions, second trimester; Z67.91 - Unspecified blood type, Rh negative (5) Supervision of high-risk : (6) : QUALIFIERS: Weeks of gestation: 40 weeks Qualified Code(s): Z3A.40 - 40 weeks gestation of Multi Select Codes Urinary/Genital Urinary/Genital CPT Codes: No Charge
--- NOTE | 2023-05-06 16:31 | OP.PCM_ITS ---
Assessment & Plan (1) Vaginal delivery: COMMENT: KW 40.1 Girl Caleb MAX (2) History of prior with IUGR : COMMENT: Current 2022 growth at 32 and 36 weeks. 32 wk:47%; 36w:25% (3) History of eating disorder: COMMENT: in remission will step on scale backwards. only to discuss weight gain if clinically relevant. encouraged well balanced meals (4) Rh negative status during : QUALIFIERS: Trimester: second trimester Qualified Code(s): O26.892 - Other specified related conditions, second trimester; Z67.91 - Unspecified blood type, Rh negative COMMENT: Rhogam given at 28 weeks and PRN (5) Supervision of high-risk : COMMENT: GBS neg, PRR , RADHA 05/04/22, girl, Caleb PC Juan [place] (6) : QUALIFIERS: Weeks of gestation: 40 weeks Qualified Code(s): Z3A.40 - 40 weeks gestation of COMMENT: NIPT low risk, declined carrier testing. ntd declined. nl anatomy Maternal Data Information RADHA Calculator Estimated Delivery Date Method Current WG Current Estimate 05/05/23 LMP (Certain) 40w 1d Final RADHA: 05/06/23 Final RADHA Source: US >20 weeks Gestational age: 40.1 weeks Vaginal Delivery Maternal Presentation Maternal Presentation: Active Labor Maternal Presentation: Progressed well to 10cm dilated and made steady progress with effective maternal pushing. Delivered the head in JOSEPH presentation. The head was delivered atraumatically and no nuchal cord was identified. The anterior and posterior shoulders delivered without complication followed by the rest of the infant and the was placed on the maternal abdomen. Delayed cord clamping was employed for approximately 3 minutes, true knot noted. Cord was clamped and cut and gentle traction was applied to the cord and the placenta delivered spontaneously. Immediately following, it was noted to be intact with a 3 vessel cord. The perineum and vagina were inspected and noted to have a first degree laceration which was repaired with 3-0 Vicryl Rapide in the usual fashion. EBL was 100cc. Patient and infant tolerated delivery well. Apgars 8/9. Dr Morris notified of vaginal delivery and orders reviewed. Physician agrees with current plan of care. Operative Information Date of Procedure: 05/06/23 Pre-Operative Diagnosis: See AP comments Post-Operative Diagnosis: Same Surgery / Procedure Performed: Spontaneous Vaginal Delivery inclusion internship #1: Lisa Gibbs Type of Anesthesia: Epidural Estimated Blood Loss: 100 Time of Delivery: 16:14 Findings Presentation: Vertex Amniotic Membrane Rupture Type: Artificial Amniotic Fluid Description: Clear Placental Delivery Description: Spontaneous Placenta Disposition: [facility] Cord Vessel Description: 3 Vessels Cord Entanglement: None A Gender: Female (1 minute): 8 (5 minute): 9 Delayed Cord Clamping: Yes Post Vaginal Delivery Medications Given After Delivery: IV Pitocin Episiotomy Description: None Laceration: 1st degree Complication Complications: None Multi Select Codes Urinary/Genital Urinary/Genital CPT Codes: 60671 Vaginal Delivery [facility]
--- NOTE | 2023-05-06 16:39 | DCINST_ITS ---
Discharge Instructions Diet Discharge Diet: No restrictions Activity Discharge Activity: Return to Normal Activity May resume sexual activity in: 6-8 weeks Dressing / Incision Call your doctor if you observe: Fever of 101 or Higher, Coldness, Increased Pain, Numbness or Tingling, Change in Color, Inability to urinate, Inability to have a bowel movement, Using more than 1 pad per hour, Shortness of breath, Dizziness, Fainting spells, Swelling in the ankles, Chest pain, Increased palpitations (irregular heartbeat), Calf discomfort and Uncontrolled pain Follow Up Care Please Follow Up With: Lisa Gibbs CNM When: Please call the office to schedule your follow up appointment in 6 weeks. If you had high blood pressure please call to schedule an appointment in 2 weeks. Test Results: Test results from this visit will be discussed in further detail at your follow- up appointment, if applicable. Discharge Plan Admission Admit Date/Time: 05/06/23 07:40 Attending Provider: Lisa Gibbs Primary Care Provider: Care Physician,No Primary Discharge Orders/Prescriptions Prescriptions: No Action PNV-DHA 27 mg iron-1 mg -300 mg capsule 1 cap PO DAILY Referrals / Follow Up: Care Physician,No Primary [Primary Care Provider] -
[2023-05-06] MEDS: Oxytocin 15 Units/NS 250ml 15 UNITS/250 ML IV.SOLN 83 UNITS IV (16:55)
[2023-05-06] MEDS: Rho(D) Immune Globulin 300 MCG (1500 Unit) Syringe IV (20:50)
[2023-05-06] MEDS: Acetaminophen 500 MG Tablet 1000 MG PO (22:46)
[2023-05-07] VITALS (12 sets, daily range): BP systolic 100–117; BP diastolic 54–63; PULSE 42–130; RESP 14–16; TEMP 36.7–37.2; O2SAT 96–99
[2023-05-07] MEDS: Ibuprofen 600 MG Tablet PO ×2 (01:24→12:12)
--- NOTE | 2023-05-07 07:54 | PN.OBGYN_ITS ---
Subjective Subjective Patient doing well without complaints. Tolerating PO. Ambulating and voiding without difficulty. Feeding well. Denies chest pain, shortness of breath, calf pain/swelling, fevers, chills, lightheadedness. Objective Data Objective Data Vital Signs: Vital Signs Temp Pulse Resp BP Pulse Ox O2 Del Method 98.5 F 80 14 106/55 L 99 Room Air 05/07/23 05:23 05/07/23 05:23 05/07/23 05:23 05/07/23 05:23 05/07/23 05:23 05/07/23 00:00 Oxygen Delivery Method Room Air Weight: 192 lb 12.8 oz Body Mass Index (BMI) 34.1 Intake & Output: Intake and Output for Last 24 Hours 05/05/23 05/06/23 05/07/23 23:59 23:59 23:59 Intake Total 3360.99 / 3360.99 Output Total 1700 / 1700 Balance 1660.99 / 1660.99 Lab / Micro Data Attestation: I reviewed the patient's lab results. 05/06/23 09:15 Labs: Laboratory Results - last 24 hr 05/06/23 09:15: WBC 15.1 H, RBC 4.12 L, Hgb 11.8 L, Hct 35.6 L, MCV 86.4, MCH 28.6, MCHC 33.1, RDW Std Deviation 42.1, RDW Coeff of [place] 13.5, Plt Count 248, MPV 9.8, Immature Gran % (Auto) 1.100 H, Neut % (Auto) 81.6 H, Lymph % (Auto) 11.9 L, [place] % (Auto) 4.8, Eos % (Auto) 0.3, Baso % (Auto) 0.3, Absolute Neuts (auto) 12.3 H, Absolute Lymphs (auto) 1.79, Nucleated RBC % 0, Syphilis Total Ab Non-reactive, Blood Type A NEGATIVE, Antibody Screen NEGATIVE 05/06/23 19:00: Screen NEGATIVE, Baby's Blood Type A POSITIVE, Baby's RACHEL NEGATIVE ROS Constitutional Constitutional: Reports systems reviewed and no addt'l complaints, except as documented; Denies anorexia or headache(s) Cardiovascular Cardiovascular: Reports systems reviewed and no addt'l complaints, except as documented; Denies dizziness, dyspnea, nausea or tachypnea Respiratory/Chest Respiratory/Chest: Reports systems reviewed and no addt'l complaints, except as documented; Denies cough, dyspnea, shortness of breath at rest or tachypnea Gastrointestinal Gastrointestinal: Reports systems reviewed and no addt'l complaints, except as documented; Denies abdominal pain, constipation or nausea Genitourinary Genitourinary: Reports systems reviewed and no addt'l complaints, except as documented; Denies burning urination, difficulty urinating, dysuria, urinary frequency or urinary incontinence Musculoskeletal Musculoskeletal: Reports systems reviewed and no addt'l complaints, except as documented Integumentary Integumentary: Reports systems reviewed and no addt'l complaints, except as documented Neurologic Neurologic: Reports systems reviewed and no addt'l complaints, except as documented; Denies abnormal speech, dizziness or headache(s) Psychiatric Psychiatric: Reports systems reviewed and no addt'l complaints, except as documented Endocrine Endocrinology: Reports systems reviewed and no addt'l complaints, except as documented Hematologic/Lymphatic Hematologic/Lymphatic: Reports systems reviewed and no addt'l complaints, except as documented Physical Exam Const alert, oriented x3 and no apparent distress Neck full ROM Resp normal respiratory effort, normal air movement and no retractions Effort and Inspection: able to speak in complete sentences and symmetric chest movement GI soft to palpation Bladder / Kidney Exam: bladder normal to palpation Uterus Palpation: uterus fundus Extremity normal to inspection and full ROM Psych mental status grossly normal, thought process normal and cooperative Assessment & Plan (1) Vaginal delivery: COMMENT: KW 40.1 Girl Caleb IAL PLAN: s/p PPD # 1 1. routine post delivery care 2. breast feeding- support given 3. rh positive 4. rubella immune 5. Discharge home (2) History of prior with IUGR : COMMENT: Current 2022 growth at 32 and 36 weeks. 32 wk:47%; 36w:25% (3) History of eating disorder: COMMENT: in remission will step on scale backwards. only to discuss weight gain if clinically relevant. encouraged well balanced meals (4) Rh negative status during : QUALIFIERS: Trimester: second trimester Qualified Code(s): O26.892 - Other specified related conditions, second trimester; Z67.91 - Unspecified blood type, Rh negative COMMENT: Rhogam given at 28 weeks and PRN (5) Supervision of high-risk : COMMENT: GBS neg, PRR , RADHA 05/04/22, girl, Caleb Farfanick [place] (6) : QUALIFIERS: Weeks of gestation: 40 weeks Qualified Code(s): Z3A.40 - 40 weeks gestation of COMMENT: NIPT low risk, declined carrier testing. ntd declined. nl anatomy Charges/Coding Multi Select Codes Urinary/Genital Urinary/Genital CPT Codes: No Charge
[2023-05-07] MEDS: Acetaminophen 500 MG Tablet 1000 MG PO (09:19)
--- NOTE | 2023-05-11 15:57 | NURSING ---
05/08: Follow up questions asked in person at consult visit. Pt. denies any s+s. Reports having a good experience in [facility].
== END 2023-05-07 17:20 | disposition home or self-care (01) | DRG 807 ==
LOC: WPOUT 07:45 → WP 07:45
PROVIDERS: Admitting Provider Advanced Practice Midwife; Visit Provider Advanced Practice Midwife
DX: O26.893 Other specified pregnancy related conditions, third trimester (principal); Z37.0 Single live birth; Z67.11 Type A blood, Rh negative; O70.0 First degree perineal laceration during delivery; Z3A.40 40 weeks gestation of pregnancy; Z86.59 Personal history of other mental and behavioral disorders; Z87.59 Personal history of other complications of pregnancy, childbirth and the puerperium
CPT/HCPCS: 59025; 59050; 85025; 85461; 86780; 86850; 86900; 86901; 90384; 99221; J7120; G0378; J2405; J2790; J2791

== ENCOUNTER → 2023-06-13 | Outpatient (CLI) | payer OTHER, SELFPAY ==
[2023-06-18 15:15] LABS: HPV Reflexed? NOT INDICATED
== END | disposition home or self-care (01) ==
LOC: LABSPEC 15:38
PROVIDERS: Referring Provider Advanced Practice Midwife; Visit Provider Advanced Practice Midwife
DX: Z12.4 Encounter for screening for malignant neoplasm of cervix (principal)
CPT/HCPCS: 88175; G0145